=== PATIENT | female | born 1945 | race Caucasian/White ===

== ENCOUNTER 2016-03-22 15:07 | Inpatient (IN) | payer OTHER, MEDICARE ==
--- NOTE | 2016-03-22 15:13 | PDOC ---
History of Present Illness - General History Source: Patient Exam Limitations: No Limitations - History of Present Illness Initial Comments: 03/22/16 16:01 The patient is a 70 year old female, with a significant past medical history of HLD, who presents to the emergency department with cough, shortness of breath and headache. She reports that she was seen at [facility] yesterday for which she was diagnosed with pneumonia and prescribed doxycycline. She states that she has been unable to keep the medication down. She denies loss of appetite and notes that she has been able to keep foods and liquids down. She reports that her headache ranges from mild to moderate, without radiation or modifying factors. The patient was last seen in the ED on 03/19/16 for an allergic reaction to Keflex, which involved mild swelling of her face. The patient denies chest pain and dizziness. Denies fever, chills, nausea, vomit , and constipation. Denies dysuria, frequency, urgency and hematuria. Allergies: Sulfa, keflex, penicillins Past surgical history: None reported Social history: No alcohol, tobacco or drug use reported <Mike Garcia - Last Filed: 03/22/16 16:00> <Riya Davis - Last Filed: 03/25/16 07:56> - General Chief Complaint: Respiratory Stated Complaint: REVISIT FOR PNEUMONIA Time Seen by Provider: 03/22/16 15:13 Past History <Mike Garcia - Last Filed: 03/22/16 16:00> - Immunization History Immunization Up to Date: Yes - Psycho/Social/Smoking Cessation Hx Anxiety: No Suicidal Ideation: No Smoking History: Never smoked Have you smoked in the past 12 months: No Drug/Substance Use Hx: No Substance Use Type: None <Riya Davis - Last Filed: 03/25/16 07:56> - Past Medical History Allergies/Adverse Reactions: Allergies Allergy/AdvReac Type Severity Reaction Status Date / Time cephalexin monohydrate Allergy Verified 03/19/16 08:36 [From Keflex] Penicillins Allergy Verified 03/19/16 08:36 Sulfa (Sulfonamide Allergy Verified 03/19/16 08:36 Antibiotics) Home Medications: Ambulatory Orders Acyclovir [Zovirax -] 400 mg PO DAILY 03/19/16 Epinephrine (Epi-Pen 0.3MG) [Epipen 0.3MG -] 0.3 mg IM ASDIR PRN #2 pens Ezetimibe [Zetia] 10 mg PO DAILY 03/19/16 Fenofibrate 40 mg PO DAILY 03/19/16 Albuterol Sulfate Inhaler - [Ventolin Hfa Inhaler -] 1 - 2 inh PO QID PRN Doxycycline Hyclate [Vibramycin] 100 mg PO BID 03/22/16 Review of Systems - Review of Systems Able to Perform ROS?: Yes Comments:: 03/22/16 16:01 GENERAL/CONSTITUTIONAL: No fever or chills. No weakness. HEAD, EYES, EARS, NOSE AND THROAT: No change in vision. No ear pain or discharge. No sore throat. CARDIOVASCULAR: +Shortness of breath. No chest pain RESPIRATORY: +Cough. No wheezing, or hemoptysis. GASTROINTESTINAL: +Diarrhea. No nausea, vomiting, diarrhea or constipation. GENITOURINARY: No dysuria, frequency, or change in urination. MUSCULOSKELETAL: No joint or muscle swelling or pain. No neck or back pain. SKIN: No rash NEUROLOGIC: No headache, vertigo, loss of consciousness, or change in strength/ sensation. ENDOCRINE: No increased thirst. No abnormal weight change HEMATOLOGIC/LYMPHATIC: No anemia, easy bleeding, or history of blood clots. ALLERGIC/IMMUNOLOGIC: No hives or skin allergy. <Mike Garcia - Last Filed: 03/22/16 16:00> *Physical Exam - Vital Signs Last Vital Signs Temp Pulse Resp BP Pulse Ox 98.5 F 75 19 154/89 96 03/22/16 15:08 03/22/16 15:08 03/22/16 15:08 03/22/16 15:08 03/22/16 15:08 <Mike Garcia - Last Filed: 03/22/16 16:00> Heart Score/ECG Review - ECG Impressions Comment:: EKG read 16:48- NSR 71 bpm, no acute ST/T changes <Riya Davis - Last Filed: 03/25/16 07:56> ED Treatment Course - LABORATORY CBC & Chemistry Diagram: 03/25/16 06:00 03/25/16 06:00 <Riya Davis - Last Filed: 03/25/16 07:56> Medical Decision Making - Medical Decision Making Pt appeared significantly dehydrated. She has had 3 ED visits recently, now diagnosed with pna and unable to tolerate abx PO. Will admit for IV abx and hydration, as she failed outpatient treatment. <Riya Davis - Last Filed: 03/25/16 07:56> *DC/Admit/Observation/Transfer - Attestations Scribe Attestion: 03/22/16 16:01 Documentation prepared by Mike Garcia, acting as medical coding specialist for Riya Davis MD. <Mike Garcia - Last Filed: 03/22/16 16:00> - Discharge Dispostion Admit: Yes <Riya Davis - Last Filed: 03/25/16 07:56> Diagnosis at time of Disposition: Dehydration Pneumonia Qualifiers: Pneumonia type: due to unspecified organism Laterality: unspecified laterality Lung location: unspecified part of lung Qualified Code(s): J18.9 - Pneumonia, unspecified organism - Discharge Dispostion Condition at time of disposition: Stable
[2016-03-22 15:30] VITALS: BMI 21.1
[2016-03-22] MEDS ORDERED: SODIUM CHLORIDE 1,000 ML IV STA (15:54)
[2016-03-22 16:43] LABS: URINE APPEARANCE Cloudy; URINE BILIRUBIN 2+ (NEGATIVE); URINE BLOOD Trace-intact (NEGATIVE); URINE GLUCOSE (UA) Negative (NEGATIVE); URINE KETONE Trace (NEGATIVE); URINE LEUK ESTERASE Negative (NEGATIVE); URINE NITRITE Negative (NEGATIVE); URINE PROTEIN Trace (NEGATIVE); URINE UROBILINOGEN 1.0 E.U/dl (0.2-1.0)
[2016-03-22 16:44] LABS: URINE COLOR YELLOW
[2016-03-22 16:52] LABS: MCH 30.1 pg (25.7-33.7); MEAN CELL VOLUME 91.3 fl (80-96); MEAN PLT VOLUME 7.7 fl (7.5-11.1); PLATELET COUNT 337 K/MM3 (134-434); RDW 13.6 % (11.6-15.6); WHITE BLOOD COUNT 18.2 K/mm3 (4.0-10.0)
[2016-03-22 17:03] LABS: ALBUMIN 3.8 g/dl (3.5-5.0); ALK PHOS 181 U/L (32-92); ANION GAP 10 (8-16); BILIRUBIN,TOTAL 0.8 mg/dl (0.2-1.0); CO2 24 mmol/L (22-28); CREATININE 0.7 mg/dl (0.6-1.3); GLUCOSE,RANDOM 120 mg/dl (74-106); SGOT/AST 54 U/L (10-42); SGPT/ALT 103 U/L (10-40)
[2016-03-22] MEDS ORDERED: LEVOFLOXACIN 750 MG IVPB 150 ML IVPB ONE ×2 (17:06→17:13)
[2016-03-22] MEDS ORDERED: ACETAMINOPHEN 325 MG TABLET (FP) ONE (17:09)
[2016-03-22] MEDS ORDERED: LEVOFLOXACIN 250 MG TABLET (FP) ONE (17:11)
[2016-03-22] MEDS ORDERED: LEVOFLOXACIN 500 MG TABLET (FP) ONE (17:11)
[2016-03-22] MEDS ORDERED: ACETAMINOPHEN 325 MG TABLET (FP) PO PRN (17:14)
[2016-03-22] MEDS ORDERED: IBUPROFEN 600 MG TABLET (FP) PO ONE (20:03)
[2016-03-22] MEDS ORDERED: SODIUM CHLORIDE 1,000 ML IV SCH (20:15)
[2016-03-22] MEDS ORDERED: METOCLOPRAMIDE HCL INJECTION 10 MG/2 ML VIAL IVPB ONE (21:31)
[2016-03-22] MEDS: HEPARIN NA (PORCINE) 5,000 UNITS/ML 1ML VIAL SQ SCH (21:58)
--- NOTE | 2016-03-22 22:00 | HP ---
CHIEF COMPLAINT: Pneumonia PCP: in [place] HISTORY OF PRESENT ILLNESS: This is a 70 year old female with a past medical history of hyperlipidemia and left ocular zoster who presents with persistent cough, headache, nausea and vomiting for several days. She was treated at [facility] yesterday and started on doxycycline for PNA but was unable to keep it down. She was recently seen in an ED in [place] about one week ago for "salivary gland swelling" where she was started on keflex. She then developed itching of the face and periorbital edema. She was seen here in the ED for this and treated with benadryl. She also reported wheezing at that time and was given a prescription for albuterol inhaler. Upon exam, she is complaining of dry mouth and headache in addition to the cough. She denies any chest pain or SOB. ER course was notable for: (1) WBC 18.2 (2) Na 129 (3) Recent Travel: [place], [place] PAST MEDICAL HISTORY: Hyperlipidemia Left eye herpes zoster Social History: Smoking: pt denies Alcohol: pt denies Drugs: pt denies Family History: mother age 90, alzheimers father age 95, old age, had a heart murmur daughter open heart surgery as a young child-pulmonary valve and PFO repair 1 sister with no medical problems Allergies cephalexin monohydrate [From Keflex] Allergy (Verified 03/19/16 08:36) Penicillins Allergy (Verified 03/19/16 08:36) Sulfa (Sulfonamide Antibiotics) Allergy (Verified 03/19/16 08:36) HOME MEDICATIONS: 3 Medication Instructions Recorded Acyclovir [Zovirax -] 400 mg PO DAILY 03/19/16 Epinephrine (Epi-Pen 0.3MG) 0.3 mg IM ASDIR PRN #2 pens 03/19/16 [Epipen 0.3MG -] Ezetimibe [Zetia] 10 mg PO DAILY 03/19/16 Fenofibrate 40 mg PO DAILY 03/19/16 Albuterol Sulfate Inhaler - 1 - 2 inh PO QID PRN 03/22/16 [Ventolin Hfa Inhaler -] Doxycycline Hyclate [Vibramycin] 100 mg PO BID 03/22/16 REVIEW OF SYSTEMS CONSTITUTIONAL: Absent: fever, chills, diaphoresis, generalized weakness, malaise, loss of appetite, weight change HEENT: Present: Swollen glands Absent: rhinorrhea, nasal congestion, throat pain, throat swelling, difficulty swallowing, mouth swelling, ear pain, eye pain, visual changes CARDIOVASCULAR: Absent: chest pain, syncope, palpitations, irregular heart rate, lightheadedness , peripheral edema RESPIRATORY: Present: cough Absent: shortness of breath, dyspnea with exertion, orthopnea, wheezing, stridor , hemoptysis GASTROINTESTINAL: Absent: abdominal pain, abdominal distension, nausea, vomiting, diarrhea, constipation, melena, hematochezia GENITOURINARY: Absent: dysuria, frequency, urgency, hesitancy, hematuria, flank pain, genital pain MUSCULOSKELETAL: Absent: myalgia, arthralgia, joint swelling, back pain, neck pain SKIN: Absent: rash, itching, pallor HEMATOLOGIC/IMMUNOLOGIC: Absent: easy bleeding, easy bruising, lymphadenopathy, frequent infections ENDOCRINE: Absent: unexplained weight gain, unexplained weight loss, heat intolerance, cold intolerance NEUROLOGIC: Present: headache Absent: focal weakness or paresthesias, dizziness, unsteady gait, seizure, mental status changes, bladder or bowel incontinence PSYCHIATRIC: Absent: anxiety, depression, suicidal or homicidal ideation, hallucinations. PHYSICAL EXAMINATION Vital Signs - 24 hr 3 03/22/16 03/22/16 15:08 21:00 Temperature 98.5 F Pulse Rate 75 Respiratory 19 19 Rate Blood Pressure 154/89 O2 Sat by Pulse 96 Oximetry (%) GENERAL: Awake, alert, and fully oriented, in no acute distress. HEAD: Normal with no signs of trauma. EYES: Pupils equal, round and reactive to light, extraocular movements intact, sclera anicteric, conjunctiva clear. No lid lag. EARS, NOSE, THROAT: Ears normal, nares patent, oropharynx clear without exudates. Moist mucous membranes. NECK: Normal range of motion, supple, JVD, or masses. + swelling to bilat submandibular salivary glands, no other lymphadenopathy LUNGS: Breath sounds equal, clear to auscultation bilaterally. No wheezes. No accessory muscle use. + crackles right base, clear with cough HEART: Regular rate and rhythm, normal S1 and S2 without murmur, rub or gallop. ABDOMEN: Soft, nontender, not distended, normoactive bowel sounds, no guarding, no rebound, no masses. No hepatomegaly or splenomegaly. MUSCULOSKELETAL: Normal range of motion at all joints. No bony deformities or tenderness. No CVA tenderness. UPPER EXTREMITIES: 2+ pulses, warm, well-perfused. No cyanosis. No clubbing. Cap refill <2 seconds. No peripheral edema. LOWER EXTREMITIES: 2+ pulses, warm, well-perfused. No calf tenderness. No peripheral edema. NEUROLOGICAL: Cranial nerves II-XII intact. Normal speech. Normal gait. PSYCHIATRIC: Cooperative. Good eye contact. Appropriate mood and affect. SKIN: Warm, dry, normal turgor, no rashes or lesions noted. Laboratory Results - last 24 hr 3 03/22/16 03/22/16 03/22/16 16:20 16:30 16:30 WBC 18.2 H D RBC 4.24 Hgb 12.8 Hct 38.7 MCV 91.3 MCHC 33.0 RDW 13.6 Plt Count 337 MPV 7.7 Neutrophils % 76.0 D Lymphocytes % 4.0 L D Monocytes % 4.0 Eosinophils % 13.0 H Band Neutrophils 3.0 D Sodium 129 L Potassium 3.8 Chloride 95 L Carbon Dioxide 24 Anion Gap 10 BUN 9 D Creatinine 0.7 Creat Clearance w eGFR > 60 Random Glucose 120 H D Calcium 10.0 Total Bilirubin 0.8 D AST 54 H D ALT 103 H D Alkaline Phosphatase 181 H D Total Protein 7.0 Albumin 3.8 Urine Color Yellow Urine Appearance Cloudy Urine pH 6.0 Ur Specific Remlap 1.025 Urine Protein Trace Urine Glucose (UA) Negative Urine Ketones Trace Urine Blood Trace-intact Urine Nitrite Negative Urine Bilirubin 2+ H Urine Urobilinogen 1.0 e.u/dl Ur Leukocyte Esterase Negative ECG: NSR, rate 71, QTC 465, CXR: ? infiltrate RLL, final read pending ASSESSMENT/PLAN: 70 year old female with a past medical history of hyperlipidemia and left ocular zoster who presents with persistent cough, headache, nausea and vomiting for several days. She was also found to be hyponatremic. She is being admitted for pneumonia and hyponatremia. Pneumonia - levaquin 750mg QD - incentive spirometer q1h while awake - robitussion q4h PRN hyponatremia - NS @75cc/hr - repeat BMP 11pm headache - given motrin with little relief - will add migraine cocktail of reglan 10mg IVPB, benadryl 25mg IVP - cont IVF. hyperlipidemia - cont home meds DVT PPX - heparin 5000u BID FEN - NS @75cc/hr - repeat bmp 11pm, 6am - regular diet Dispo: Pt currently requires inpatient care. Visit type - Emergency Visit Emergency Visit: Yes ED Registration Date: 03/22/16 Care time: The patient presented to the Emergency Department on the above date and was hospitalized for further evaluation of their emergent condition. - New Patient This patient is new to me today: Yes Date on this admission: 03/22/16 - Critical Care Critical Care patient: No
[2016-03-22 23:32] LABS: CALCIUM 8.9 mg/dl (8.4-10.2); CREATININE 0.5 mg/dl (0.6-1.3)
[2016-03-23] MEDS: SODIUM CHLORIDE 1,000 ML IV SCH (00:33)
[2016-03-23] MEDS: guaiFENesin 200 MG/10 ML 10 ML UNIT-DOSE CUPS PO PRN ×2 (00:35→06:16)
[2016-03-23 08:57] LABS: MCH 30.1 pg (25.7-33.7); MCHC 32.7 g/dl (32.0-36.0); MEAN CELL VOLUME 92.3 fl (80-96); PLATELET COUNT 306 K/MM3 (134-434); RDW 13.6 % (11.6-15.6); WHITE BLOOD COUNT 15.8 K/mm3 (4.0-10.0)
[2016-03-23 09:04] LABS: CALCIUM 9.4 mg/dl (8.4-10.2); CREATININE 0.6 mg/dl (0.6-1.3); MAGNESIUM 1.6 mg/dL (1.8-2.4); PHOSPHOROUS 2.7 mg/dl (2.5-4.6)
[2016-03-23] MEDS: FENOFIBRIC ACID 45 MG CAP PO SCH (10:00)
[2016-03-23] MEDS ORDERED: PT OWN MED DRAWER 7, Y5N ONE (10:28)
[2016-03-23] MEDS: ACYCLOVIR 400 MG TABLET PO SCH (10:33)
[2016-03-23] MEDS: HEPARIN NA (PORCINE) 5,000 UNITS/ML 1ML VIAL SQ SCH ×2 (10:34→21:29)
[2016-03-23] MEDS: LEVOFLOXACIN 750 MG IVPB 150 ML IVPB SCH (10:34)
[2016-03-23] MEDS: EZETIMIBE 10 MG TABLET (FP) PO SCH (10:34)
--- NOTE | 2016-03-23 11:32 | PN ---
Physical Exam: SUBJECTIVE: Patient seen and examined, denies any CP/SOB, denies any fever, chills, reports nausea is better, reports migraine improves, overall is feeling much better since admission. OBJECTIVE:70 year old female with a past medical history of hyperlipidemia and left ocular zoster presented to the ED with c/o persistent cough, headache, nausea and vomiting for several days. She was was found to have leukocytosis and hyponatremia. she was thus admitted for further eval and treatment. Vital Signs Period Temp Pulse Resp BP Sys/Shannon Pulse Ox Last 24 Hr 97.9 F-99.7 F 60-67 17-19 117-132/69-75 GENERAL: The patient is awake, alert, and fully oriented, in no acute distress. HEAD: Normal with no signs of trauma. EYES: PERRL, extraocular movements intact, sclera anicteric, conjunctiva clear. No ptosis. ENT: Ears normal, nares patent, oropharynx clear without exudates, Dry mucous membranes. NECK: Trachea midline, full range of motion, supple. LUNGS: Breath sounds diminshed, some rhonchi to the right lobes, no accessory muscle use. HEART: Regular rate and rhythm, S1, S2 without murmur, rub or gallop. ABDOMEN: Soft, nontender, nondistended, normoactive bowel sounds, no guarding, no rebound, no hepatosplenomegaly, no masses. EXTREMITIES: 2+ pulses, warm, well-perfused, no edema. NEUROLOGICAL: Normal speech, gait not observed. PSYCH: Normal mood, normal affect. SKIN: Warm, dry, normal turgor, no rashes or lesions noted Laboratory Results - last 24 hr 03/22/16 03/23/16 03/23/16 23:00 06:50 07:30 WBC 15.8 H RBC 4.00 Hgb 12.1 Hct 36.9 MCV 92.3 MCHC 32.7 RDW 13.6 Plt Count 306 MPV 8.0 Neutrophils % Y Lymphocytes % Y Sodium 125 L Potassium 4.1 Chloride 98 Carbon Dioxide 21 L Anion Gap 6 L BUN 8 Creatinine 0.5 L D Random Glucose 145 H D Calcium 8.9 Phosphorus Magnesium Urine Osmolality Cancelled Ur Random Sodium Ur Random Potassium Ur Random Chloride 03/23/16 03/23/16 07:30 08:10 WBC RBC Hgb Hct MCV MCHC RDW Plt Count MPV Neutrophils % Lymphocytes % Sodium 135 L Potassium 4.1 Chloride 102 Carbon Dioxide 26 D Anion Gap 7 L BUN 6 L D Creatinine 0.6 Random Glucose 88 D Calcium 9.4 Phosphorus 2.7 Magnesium 1.6 L Urine Osmolality Ur Random Sodium 29 Ur Random Potassium 6.2 Ur Random Chloride 36 Active Medications Generic Name Dose Route Start Last Admin Trade Name Freq PRN Reason Stop Dose Admin Acyclovir 400 mg 03/23/16 10:00 03/23/16 10:33 Zovirax - PO 400 mg DAILY FRANSISCA Administration Ezetimibe 10 mg 03/23/16 10:00 03/23/16 10:34 Zetia - PO 10 mg DAILY FRANSISCA Administration Fenofibric Acid 45 mg 03/23/16 10:00 Trilipix - PO DAILY FRANSISCA Guaifenesin 10 ml 03/22/16 22:00 03/23/16 06:16 Robitussin - PO 10 ml Q4H PRN Administration COUGH Heparin Sodium (Porcine) 5,000 unit 03/22/16 22:00 03/23/16 10:34 Heparin - SQ 5,000 unit BID FRANSISCA Administration Sodium Chloride 1,000 mls @ 125 mls/hr 03/23/16 00:25 03/23/16 00:33 Normal Saline - IV 125 mls/hr ASDIR FRANSISCA Administration Levofloxacin 150 mls @ 100 mls/hr 03/23/16 10:00 03/23/16 10:34 Levaquin 750 Mg Premixed Ivpb - IVPB 100 mls/hr DAILY FRANSISCA Administration Ondansetron HCl 4 mg 03/22/16 20:05 Zofran Injection IVPB Q6H PRN NAUSEA ASSESSMENT/PLAN: 1) Cough/leukocytosis R/o pneumonia vs bronchitis: CXR show: small bilateral effusions, no signs of infiltrate or failure leukocytosis improved, 15.8 from 18.2 influenza A&B negative Empiric ABT pending culture results Hydrate monitor closely prn antipyretic 2) hyponatremia: improving, sodium level 135 from 125 trending sodium level repeat labs in AM 3)Hyperlipidemia: Cont zetia/ fenobrinic acid, low cholesterol/low fat diet 4) Hx ocular zoster: cont' oral acyclovir, no reported visual disturbances 5) headache: had received reglan and IV benadryl with some relief will give one more dose today and start on fioricet prn, cont IV hydration Visit type - Emergency Visit Emergency Visit: Yes ED Registration Date: 03/22/16 Care time: The patient presented to the Emergency Department on the above date and was hospitalized for further evaluation of their emergent condition. - New Patient This patient is new to me today: Yes Date on this admission: 03/23/16 - Critical Care Critical Care patient: No - Discharge Referral Referred to [facility] Med P.C.: Yes
[2016-03-23] MEDS: IBUPROFEN 400 MG TABLET (FP) PO PRN (12:10)
[2016-03-23] MEDS ORDERED: METOCLOPRAMIDE HCL INJECTION 10 MG/2 ML VIAL IVPUSH ONE (12:12)
[2016-03-23] MEDS: ACETAMINOPHEN/CAFFEINE/BUTALBITAL 1 TAB PO PRN (18:49)
[2016-03-23] MEDS ORDERED: MAGNESIUM SULF 50% (8.12 MEQ/2 ML-1 GM VIAL) IVPB ONE (22:23)
[2016-03-23] MEDS: diphenhydrAMINE HCL 25 MG CAPSULE (FP) PO PRN (22:51)
[2016-03-24] MEDS: diphenhydrAMINE HCL 25 MG CAPSULE (FP) PO PRN (04:32)
[2016-03-24] MEDS: IBUPROFEN 400 MG TABLET (FP) PO PRN ×2 (04:32→18:30)
[2016-03-24] MEDS: SODIUM CHLORIDE 1,000 ML IV SCH (06:53)
[2016-03-24 07:46] LABS: MCH 30.7 pg (25.7-33.7); MCHC 32.9 g/dl (32.0-36.0); MEAN CELL VOLUME 93.1 fl (80-96); PLATELET COUNT 261 K/MM3 (134-434); RDW 14.1 % (11.6-15.6); WHITE BLOOD COUNT 13.9 K/mm3 (4.0-10.0)
[2016-03-24 07:47] LABS: BASOPHIL 0.5 % (0-2.0); EOSINOPHIL 51.4 % (0-4.5); MEAN PLT VOLUME 7.6 fl (7.5-11.1); NEUTROPHILS 33.4 % (42.8-82.8)
[2016-03-24 08:25] LABS: CALCIUM 8.6 mg/dL (8.5-10.1); CREATININE 0.6 mg/dL (0.55-1.02)
[2016-03-24] MEDS: HEPARIN NA (PORCINE) 5,000 UNITS/ML 1ML VIAL SQ SCH ×2 (09:56→21:30)
[2016-03-24] MEDS: LEVOFLOXACIN 750 MG IVPB 150 ML IVPB SCH (09:56)
[2016-03-24] MEDS: EZETIMIBE 10 MG TABLET (FP) PO SCH (09:57)
[2016-03-24] MEDS: FENOFIBRIC ACID 45 MG CAP PO SCH (09:57)
[2016-03-24] MEDS: ACYCLOVIR 400 MG TABLET PO SCH (09:57)
[2016-03-24] MEDS: ACETAMINOPHEN/CAFFEINE/BUTALBITAL 1 TAB PO PRN (09:58)
[2016-03-24] MEDS: predniSONE 20 MG TABLET (UD) PO SCH (11:36)
[2016-03-24] MEDS: FLUTICASONE PROP 0.05% 16 GM NASAL SPRAY NS SCH ×2 (11:42→22:30)
--- NOTE | 2016-03-24 12:08 | PN ---
Physical Exam: SUBJECTIVE: Patient seen and examined, seen and examined, reports feeling better each day, does report some nasal dryness, headache improved. OBJECTIVE: 70 year old female with a past medical history of hyperlipidemia and left ocular zoster presented to the ED with c/o persistent cough, headache, nausea and vomiting for several days. She was was found to have leukocytosis and hyponatremia. she was thus admitted for further eval and treatment. Last Vital Signs Temp Pulse Resp BP Pulse Ox 99.5 F 79 18 143/66 100 03/24/16 06:00 03/24/16 06:00 03/24/16 09:00 03/24/16 06:00 03/24/16 09:00 GENERAL: The patient is awake, alert, and fully oriented, in no acute distress. HEAD: Normal with no signs of trauma. EYES: PERRL, extraocular movements intact, sclera anicteric, conjunctiva clear. No ptosis. ENT: Ears normal, nares patent, oropharynx clear without exudates, moist mucous membranes. NECK: Trachea midline, full range of motion, supple. LUNGS: Breath sounds equal, clear to auscultation bilaterally, no wheezes, no crackles, no accessory muscle use. HEART: Regular rate and rhythm, S1, S2 without murmur, rub or gallop. ABDOMEN: Soft, nontender, nondistended, normoactive bowel sounds, no guarding, no rebound, no hepatosplenomegaly, no masses. EXTREMITIES: 2+ pulses, warm, well-perfused, no edema. NEUROLOGICAL: . Normal speech, gait steady PSYCH: Normal mood, normal affect. SKIN: Warm, dry, normal turgor, no rashes or lesions noted Laboratory Results - last 24 hr 03/23/16 03/24/16 03/24/16 08:10 07:00 07:00 WBC 13.9 H RBC 3.60 Hgb 11.0 Hct 33.5 MCV 93.1 MCHC 32.9 RDW 14.1 Plt Count 261 MPV 7.6 Neutrophils % 33.4 L Lymphocytes % 7.6 L Monocytes % 7.1 Eosinophils % 51.4 H* Basophils % 0.5 Sodium 141 Potassium 4.0 Chloride 109 H Carbon Dioxide 24 Anion Gap 8 BUN 3 L Creatinine 0.6 Random Glucose 87 Calcium 8.6 Urine Osmolality 111 L Active Medications Generic Name Dose Route Start Last Admin Trade Name Freq PRN Reason Stop Dose Admin Acetaminophen/Butalbital/Caffeine 1 tablet 03/23/16 16:25 03/24/16 09:58 Fioricet - PO 03/26/16 16:24 1 tablet Q6H PRN Administration HEADACHE Acyclovir 400 mg 03/23/16 10:00 03/24/16 09:57 Zovirax - PO 400 mg DAILY FRANSISCA Administration Diphenhydramine HCl 25 mg 03/23/16 16:29 03/24/16 04:32 Benadryl - PO 25 mg HS PRN Administration INSOMNIA Ezetimibe 10 mg 03/23/16 10:00 03/24/16 09:57 Zetia - PO 10 mg DAILY FRANSISCA Administration Fenofibric Acid 45 mg 03/23/16 10:00 03/24/16 09:57 Trilipix - PO Not Given DAILY FRANSISCA Fluticasone Propionate 1 spray 03/24/16 11:00 03/24/16 11:42 Flonase - NS 1 spray BID FRANSISCA Administration Guaifenesin 10 ml 03/22/16 22:00 03/23/16 06:16 Robitussin - PO 10 ml Q4H PRN Administration COUGH Heparin Sodium (Porcine) 5,000 unit 03/22/16 22:00 03/24/16 09:56 Heparin - SQ 5,000 unit BID FRANSISCA Administration Sodium Chloride 1,000 mls @ 125 mls/hr 03/23/16 00:25 03/24/16 06:53 Normal Saline - IV 125 mls/hr ASDIR FRANSISCA Administration Levofloxacin 150 mls @ 100 mls/hr 03/23/16 10:00 03/24/16 09:56 Levaquin 750 Mg Premixed Ivpb - IVPB 100 mls/hr DAILY FRANSISCA Administration Ibuprofen 400 mg 03/23/16 11:37 03/24/16 04:32 Motrin - PO 400 mg Q6H PRN Administration PAIN Ondansetron HCl 4 mg 03/22/16 20:05 Zofran Injection IVPB Q6H PRN NAUSEA Prednisone 40 mg 03/24/16 11:00 03/24/16 11:36 Deltasone - PO 03/28/16 10:01 40 mg DAILY FRANSISCA Administration Microbiology 03/22/16 16:20 Urine - Urine Clean Catch Urine Culture - Final NO GROWTH OBTAINED 03/22/16 16:20 Blood - Peripheral Venous Blood Culture - Preliminary NO GROWTH OBTAINED AFTER 24 HOURS, INCUBATION TO CONTINUE FOR 4 DAYS. 03/22/16 16:30 Blood - Peripheral Venous Blood Culture - Preliminary NO GROWTH OBTAINED AFTER 24 HOURS, INCUBATION TO CONTINUE FOR 4 DAYS. 03/22/16 16:20 Urine For Antigen Detection Legionella Antigen - Final 03/22/16 16:20 Urine For Antigen Detection Streptococcus pneumoniae Antigen (M - Final ASSESSMENT/PLAN: 1) Cough/leukocytosis R/o pneumonia vs bronchitis: cough improved, CXR show: small bilateral effusions , no signs of infiltrate or failure leukocytosis improved, 13.9 from 18.2 influenza A&B negative Empiric ABT preliminary culture result negative Hydrate monitor closely prn antipyretic 2) eosinophilia: eosinophils level elevated from 13.0 to 51.4, patient does report a recent allergic reaction to cephalexin about a week ago, resulting in facial swelling. Will start on oral prednisone dose taper, close monitoring. 3) hyponatremia: resolved, sodium level today 141 AM labs. 4)Hyperlipidemia: Cont zetia/ fenobrinic acid, low cholesterol/low fat diet 5) Hx ocular zoster: cont' oral acyclovir, no reported visual disturbances 6) headache: improved on fioricet. Visit type - Emergency Visit Emergency Visit: Yes ED Registration Date: 03/22/16 Care time: The patient presented to the Emergency Department on the above date and was hospitalized for further evaluation of their emergent condition. - New Patient This patient is new to me today: No - Critical Care Critical Care patient: No - Discharge Referral Referred to [facility] Med P.C.: Yes
--- NOTE | 2016-03-24 18:00 | EKG ---
Test Reason : Blood Pressure : / mmHG Vent. Rate : 071 BPM Atrial Rate : 071 BPM P-R Int : 186 ms QRS Dur : 072 ms QT Int : 428 ms P-R-T Axes : 084 066 058 degrees QTc Int : 465 ms POOR DATA QUALITY, INTERPRETATION MAY BE ADVERSELY AFFECTED NORMAL SINUS RHYTHM ANTERIOR INFARCT , AGE UNDETERMINED NO PREVIOUS ECGS AVAILABLE Confirmed by MD GONZALEZ MARJORY ([id number]) on 03/24/2016 5:59:52 PM Referred By: MD ROSS Overread By: MIKE GONZALEZ MD
[2016-03-24] MEDS: guaiFENesin 200 MG/10 ML 10 ML UNIT-DOSE CUPS PO PRN (22:47)
[2016-03-25] MEDS: SODIUM CHLORIDE 1,000 ML IV SCH (01:07)
[2016-03-25] MEDS: guaiFENesin 200 MG/10 ML 10 ML UNIT-DOSE CUPS PO PRN (06:45)
[2016-03-25 07:06] LABS: MCH 31.1 pg (25.7-33.7); MCHC 33.1 g/dl (32.0-36.0); MEAN CELL VOLUME 93.9 fl (80-96); MEAN PLT VOLUME 7.8 fl (7.5-11.1); PLATELET COUNT 245 K/MM3 (134-434); RDW 14.2 % (11.6-15.6); WHITE BLOOD COUNT 13.7 K/mm3 (4.0-10.0)
[2016-03-25 07:34] LABS: ALBUMIN 2.6 g/dl (3.4-5.0); ALK PHOS 317 U/L (45-117); ANION GAP 9 (8-16); BILIRUBIN,DIRECT 0.2 mg/dL (0.0-0.2); BILIRUBIN,TOTAL 0.4 mg/dL (0.2-1.0); CALCIUM 8.8 mg/dL (8.5-10.1); CO2 24 mmol/L (21-32); CREATININE 0.6 mg/dL (0.55-1.02); GLUCOSE,RANDOM 105 mg/dL (74-106); SGOT/AST 217 U/L (15-37); SGPT/ALT 181 U/L (12-78); TOT PROT 5.6 g/dl (6.4-8.2)
--- NOTE | 2016-03-25 08:50 | PN ---
[id number] reports headache to left side of head with photosensitivity, patient denies any fever or nausea. OBJECTIVE:70 year old female with a past medical history of hyperlipidemia and left ocular zoster. patient was admitted from the emergency department for bilateral pleural effusions and hyponatremia. Vital Signs Period Temp Pulse Resp BP Sys/Shannon Pulse Ox Last 24 Hr 97.3 F-97.9 F 52-72 16-18 115-133/54-74 96-100 GENERAL: The patient is awake, alert, and fully oriented, in no acute distress. HEAD: Normal with no signs of trauma. EYES: PERRL, extraocular movements intact, sclera anicteric, conjunctiva clear. No ptosis. ENT: Ears normal, nares patent, oropharynx clear without exudates, moist mucous membranes. NECK: Trachea midline, full range of motion, supple. LUNGS: Breath sounds equal, diminished to base, crackles to billateral bases R<L , no wheezes, no accessory muscle use, ongoing moist cough HEART: Regular rate and rhythm, S1, S2 without murmur, rub or gallop. ABDOMEN: Soft, nontender, nondistended, normoactive bowel sounds, no guarding, no rebound, no hepatosplenomegaly, no masses. EXTREMITIES: 2+ pulses, warm, well-perfused, no edema. NEUROLOGICAL: Cranial nerves II through XII grossly intact. Normal speech, gait not observed. PSYCH: Normal mood, normal affect. SKIN: Warm, dry, normal turgor, no rashes or lesions noted Laboratory Results - last 24 hr 03/25/16 03/25/16 06:00 06:00 WBC 13.7 H RBC 3.32 L Hgb 10.3 L Hct 31.1 L MCV 93.9 MCHC 33.1 RDW 14.2 Plt Count 245 MPV 7.8 Neutrophils % Y Lymphocytes % Y Sodium 141 Potassium 4.1 Chloride 108 H Carbon Dioxide 24 Anion Gap 9 BUN 6 L D Creatinine 0.6 Random Glucose 105 D Calcium 8.8 Total Bilirubin 0.4 Direct Bilirubin 0.2 AST 217 H ALT 181 H Alkaline Phosphatase 317 H Total Protein 5.6 L Albumin 2.6 L Active Medications Generic Name Dose Route Start Last Admin Trade Name Freq PRN Reason Stop Dose Admin Acetaminophen/Butalbital/Caffeine 1 tablet 03/23/16 16:25 03/24/16 09:58 Fioricet - PO 03/26/16 16:24 1 tablet Q6H PRN Administration HEADACHE Acyclovir 400 mg 03/23/16 10:00 03/24/16 09:57 Zovirax - PO 400 mg DAILY FRANSISCA Administration Diphenhydramine HCl 25 mg 03/23/16 16:29 03/24/16 04:32 Benadryl - PO 25 mg HS PRN Administration INSOMNIA Ezetimibe 10 mg 03/23/16 10:00 03/24/16 09:57 Zetia - PO 10 mg DAILY FRANSISCA Administration Fenofibric Acid 45 mg 03/23/16 10:00 03/24/16 09:57 Trilipix - PO Not Given DAILY FRANSISCA Fluticasone Propionate 1 spray 03/24/16 11:00 03/24/16 22:30 Flonase - NS 1 spray BID FRANSISCA Administration Guaifenesin 10 ml 03/22/16 22:00 03/25/16 06:45 Robitussin - PO 10 ml Q4H PRN Administration COUGH Heparin Sodium (Porcine) 5,000 unit 03/22/16 22:00 03/24/16 21:30 Heparin - SQ 5,000 unit BID FRANSISCA Administration Sodium Chloride 1,000 mls @ 125 mls/hr 03/23/16 00:25 03/25/16 01:07 Normal Saline - IV 125 mls/hr ASDIR FRANSISCA Administration Levofloxacin 150 mls @ 100 mls/hr 03/23/16 10:00 03/24/16 09:56 Levaquin 750 Mg Premixed Ivpb - IVPB 100 mls/hr DAILY FRANSISCA Administration Ibuprofen 400 mg 03/23/16 11:37 03/24/16 18:30 Motrin - PO 400 mg Q6H PRN Administration PAIN Ondansetron HCl 4 mg 03/22/16 20:05 Zofran Injection IVPB Q6H PRN NAUSEA Prednisone 40 mg 03/24/16 11:00 03/24/16 11:36 Deltasone - PO 03/28/16 10:01 40 mg DAILY FRANSISCA Administration Microbiology 03/22/16 16:20 Blood - Peripheral Venous Blood Culture - Preliminary NO GROWTH OBTAINED AFTER 48 HOURS, INCUBATION TO CONTINUE FOR 3 DAYS. 03/22/16 16:30 Blood - Peripheral Venous Blood Culture - Preliminary NO GROWTH OBTAINED AFTER 48 HOURS, INCUBATION TO CONTINUE FOR 3 DAYS. 12/30/16 16:20 Urine - Urine Clean Catch Urine Culture - Final NO GROWTH OBTAINED 03/22/16 16:20 Urine For Antigen Detection Legionella Antigen - Final, negative 03/22/16 16:20 Urine For Antigen Detection Streptococcus pneumoniae Antigen (M - Final, negative 03/22/16 16:05 Nasopharyngeal Swab Influenza Types A,B Antigen (MICHAEL) - Final , negative ASSESSMENT/PLAN: 1) Pulm - chest xray (03/22), small billateral pleural effusions - pt reports ongoing cough, persistant moist cough noted on exam, will order CT of chest w/o contrast - continue levaquin - pending RSV and sputum culture - combivent q6h standing ordered 2) Heme - leukocytosis resolved, pt afebrile - eosinophilia noted, secondary to allergic reaction, continue oral prednisone 3) GI - transaminitis noted, benign abdominal exam, tbilli wnl, likely secondary to infection - hold zetia and fenobriate 4) Card - pmh of hyperlipidemia, will hold fenobriate and zetia due to transanimitis - continue low cholestrol diet 5) neuro - new onset headache, symptoms consistent migraines - magnesium, toradol, reglan ordered - pending CT of head - continue prn fiorcet f/e/n -low cholesterol diet - ivf ppx zantac dispo: requires inpatient care Visit type - Emergency Visit Emergency Visit: Yes ED Registration Date: 03/22/16 Care time: The patient presented to the Emergency Department on the above date and was hospitalized for further evaluation of their emergent condition. - New Patient This patient is new to me today: Yes Date on this admission: 03/25/16 - Critical Care Critical Care patient: No - Discharge Referral Referred to [facility] Med P.C.: No
[2016-03-25 08:56] LABS: MAGNESIUM 1.8 mg/dL (1.8-2.4)
[2016-03-25] MEDS ORDERED: ALBUTEROL SO4 2.5/IPRATROPIUM 0.5 INH SOL 3 ML VIAL.NEB. NEB SCH (09:00)
[2016-03-25] MEDS ORDERED: KETOROLAC TROMETHAMINE 30 MG/1 ML VIAL IVPUSH ONE (09:45)
[2016-03-25] MEDS ORDERED: MAGNESIUM SULF 50% (8.12 MEQ/2 ML-1 GM VIAL) IVPB ONE (09:45)
[2016-03-25] MEDS ORDERED: METOCLOPRAMIDE HCL INJECTION 10 MG/2 ML VIAL IVPB ONE (09:45)
[2016-03-25] MEDS ORDERED: PT OWN MED DRAWER 7, Y5N ONE ×2 (09:53→21:22)
[2016-03-25 10:08] LABS: PLATELET ESTIMATE ADEQUATE (NORMAL)
[2016-03-25] MEDS: LEVOFLOXACIN 750 MG IVPB 150 ML IVPB SCH (10:15)
[2016-03-25] MEDS: FLUTICASONE PROP 0.05% 16 GM NASAL SPRAY NS SCH ×2 (10:15→21:36)
[2016-03-25] MEDS: predniSONE 20 MG TABLET (UD) PO SCH (10:15)
[2016-03-25] MEDS: RANITIDINE HCL 150 MG TABLET (FP) PO SCH (10:15)
[2016-03-25] MEDS: HEPARIN NA (PORCINE) 5,000 UNITS/ML 1ML VIAL SQ SCH ×2 (10:15→21:36)
[2016-03-25] MEDS: ACYCLOVIR 400 MG TABLET PO SCH (10:15)
[2016-03-25] MEDS ORDERED: SODIUM CHLORIDE 1,000 ML IV SCH ×3 (14:07→14:44)
[2016-03-25] MEDS: BUDESONIDE/FORMETEROL FUMARATE 80/4.5 mcg INHALER IH SCH (21:36)
[2016-03-25] MEDS: ALBUTEROL SO4 2.5/IPRATROPIUM 0.5 INH SOL 3 ML VIAL.NEB. NEB PRN (23:25)
[2016-03-25] MEDS: IBUPROFEN 400 MG TABLET (FP) PO PRN (23:45)
[2016-03-25] MEDS: diphenhydrAMINE HCL 25 MG CAPSULE (FP) PO PRN (23:45)
[2016-03-26] MEDS: ALBUTEROL SO4 2.5/IPRATROPIUM 0.5 INH SOL 3 ML VIAL.NEB. NEB PRN (05:30)
[2016-03-26] MEDS: IBUPROFEN 400 MG TABLET (FP) PO PRN (05:30)
[2016-03-26 08:18] LABS: BASOPHIL 0.2 % (0-2.0); EOSINOPHIL 28.9 % (0-4.5); MCH 30.8 pg (25.7-33.7); MCHC 33.5 g/dl (32.0-36.0); MEAN CELL VOLUME 92.1 fl (80-96); MEAN PLT VOLUME 7.6 fl (7.5-11.1); NEUTROPHILS 49.9 % (42.8-82.8); PLATELET COUNT 314 K/MM3 (134-434); RDW 13.6 % (11.6-15.6); WHITE BLOOD COUNT 15.8 K/mm3 (4.0-10.0)
[2016-03-26 08:40] LABS: ALBUMIN 2.8 g/dl (3.5-5.0); ALK PHOS 253 U/L (32-92); ANION GAP 5 (8-16); BILIRUBIN,TOTAL 0.6 mg/dl (0.2-1.0); CALCIUM 9.1 mg/dl (8.4-10.2); CO2 25 mmol/L (22-28); CREATININE 0.6 mg/dl (0.6-1.3); GLUCOSE,RANDOM 96 mg/dl (74-106); MAGNESIUM 1.6 mg/dL (1.8-2.4); PHOSPHOROUS 3.1 mg/dl (2.5-4.6); SGOT/AST 127 U/L (10-42); SGPT/ALT 154 U/L (10-40); TOT PROT 5.5 g/dl (6.4-8.3)
[2016-03-26] MEDS ORDERED: MAGNESIUM SULFATE 2 GM in SODIUM CHLORIDE 100 ML IVPB ONE (08:54)
--- NOTE | 2016-03-26 08:54 | PN ---
[id number] cough. OBJECTIVE: patient is a 70 year old female with a past medical history of hyperlipidemia and left ocular zoster. patient was admitted from the emergency department for bilateral pleural effusions and hyponatremia. Vital Signs Period Temp Pulse Resp BP Sys/Shannon Pulse Ox Last 24 Hr 98.3 F-99 F 58-84 17-18 114-136/55-65 94-96 physical examination GENERAL: The patient is awake, alert, and fully oriented, in no acute distress. HEAD: Normal with no signs of trauma. EYES: PERRL, extraocular movements intact, sclera anicteric, conjunctiva clear. No ptosis. ENT: Ears normal, nares patent, oropharynx clear without exudates, moist mucous membranes. NECK: Trachea midline, full range of motion, supple. LUNGS: Breath sounds equal, diminished to base, crackles to billateral bases R<L , no wheezes, no accessory muscle use, ongoing moist cough HEART: Regular rate and rhythm, S1, S2 without murmur, rub or gallop. ABDOMEN: Soft, nontender, nondistended, normoactive bowel sounds, no guarding, no rebound, no hepatosplenomegaly, no masses. EXTREMITIES: 2+ pulses, warm, well-perfused, no edema. NEUROLOGICAL: Cranial nerves II through XII grossly intact. Normal speech, gait not observed. PSYCH: Normal mood, normal affect. SKIN: Warm, dry, normal turgor, no rashes or lesions noted Laboratory Results - last 24 hr 03/25/16 03/25/16 03/25/16 06:00 06:00 09:00 WBC RBC Hgb Hct MCV MCHC RDW Plt Count MPV Neutrophils % 44.0 D Lymphocytes % 21.0 D Monocytes % 8.0 Eosinophils % 21.0 H* Basophils % Band Neutrophils 6.0 Platelet Estimate Adequate Sodium Potassium Chloride Carbon Dioxide Anion Gap BUN Creatinine Creat Clearance w eGFR Random Glucose Calcium Phosphorus 3.0 Magnesium 1.8 Total Bilirubin AST ALT Alkaline Phosphatase B-Natriuretic Peptide < 5.00 L Total Protein Albumin Monoscreen Negative RSV Ag Report Status 03/25/16 03/26/16 03/26/16 13:00 07:40 07:40 WBC 15.8 H RBC 3.30 L Hgb 10.2 L D Hct 30.4 L D MCV 92.1 MCHC 33.5 RDW 13.6 Plt Count 314 MPV 7.6 Neutrophils % 49.9 D Lymphocytes % 13.4 D Monocytes % 7.6 D Eosinophils % 28.9 H* D Basophils % 0.2 Band Neutrophils Platelet Estimate Sodium 137 Potassium 3.9 Chloride 107 Carbon Dioxide 25 Anion Gap 5 L BUN 9 D Creatinine 0.6 Creat Clearance w eGFR > 60 Random Glucose 96 Calcium 9.1 Phosphorus 3.1 Magnesium 1.6 L Total Bilirubin 0.6 D AST 127 H D ALT 154 H D Alkaline Phosphatase 253 H D B-Natriuretic Peptide Total Protein 5.5 L D Albumin 2.8 L D Monoscreen RSV Ag Report Status Negative Active Medications Generic Name Dose Route Start Last Admin Trade Name Freq PRN Reason Stop Dose Admin Acetaminophen/Butalbital/Caffeine 1 tablet 03/23/16 16:25 03/24/16 09:58 Fioricet - PO 03/26/16 16:24 1 tablet Q6H PRN Administration HEADACHE Acyclovir 400 mg 03/23/16 10:00 03/25/16 10:15 Zovirax - PO 400 mg DAILY FRANSISCA Administration Albuterol/Ipratropium 1 amp 03/25/16 15:04 03/26/16 05:30 Duoneb - NEB 1 amp Q6H PRN Administration COUGH Budesonide/Formoterol Fumarate 2 puff 03/25/16 22:00 03/25/16 21:36 Symbicort 80/4.5mcg - IH 2 puff BID FRANSISCA Administration Diphenhydramine HCl 25 mg 03/23/16 16:29 03/25/16 23:45 Benadryl - PO 25 mg HS PRN Administration INSOMNIA Ezetimibe 10 mg 03/23/16 10:00 03/24/16 09:57 Zetia - PO 10 mg DAILY FRANSISCA Administration Fenofibric Acid 45 mg 03/23/16 10:00 03/24/16 09:57 Trilipix - PO Not Given DAILY FRANSISCA Fluticasone Propionate 1 spray 03/24/16 11:00 03/25/16 21:36 Flonase - NS 1 spray BID FRANSISCA Administration Guaifenesin 10 ml 03/22/16 22:00 03/25/16 06:45 Robitussin - PO 10 ml Q4H PRN Administration COUGH Heparin Sodium (Porcine) 5,000 unit 03/22/16 22:00 03/25/16 21:36 Heparin - SQ 5,000 unit BID FRANSISCA Administration Levofloxacin 150 mls @ 100 mls/hr 03/23/16 10:00 03/25/16 10:15 Levaquin 750 Mg Premixed Ivpb - IVPB 100 mls/hr DAILY FRANSISCA Administration Sodium Chloride 1,000 mls @ 50 mls/hr 03/25/16 14:44 Normal Saline - IV 03/26/16 10:07 ASDIR FRANSISCA Ibuprofen 400 mg 03/23/16 11:37 03/26/16 05:30 Motrin - PO 400 mg Q6H PRN Administration PAIN Ondansetron HCl 4 mg 03/22/16 20:05 Zofran Injection IVPB Q6H PRN NAUSEA Prednisone 40 mg 03/24/16 11:00 03/25/16 10:15 Deltasone - PO 03/28/16 10:01 40 mg DAILY FRANSISCA Administration Ranitidine HCl 150 mg 03/25/16 10:00 03/25/16 10:15 Zantac - PO 150 mg DAILY FRANSISCA Administration Zolpidem Tartrate 5 mg 03/25/16 09:01 Ambien - PO HS PRN INSOMNIA Microbiology 03/22/16 16:20 Blood - Peripheral Venous Blood Culture - Preliminary NO GROWTH OBTAINED AFTER 72 HOURS, INCUBATION TO CONTINUE FOR 2 DAYS. 03/22/16 16:30 Blood - Peripheral Venous Blood Culture - Preliminary NO GROWTH OBTAINED AFTER 72 HOURS, INCUBATION TO CONTINUE FOR 2 DAYS. 03/22/16 16:20 Urine - Urine Clean Catch Urine Culture - Final NO GROWTH OBTAINED 03/22/16 16:20 Urine For Antigen Detection Legionella Antigen - Final, negative 03/22/16 16:20 Urine For Antigen Detection Streptococcus pneumoniae Antigen (M - Final, negative 03/22/16 16:05 Nasopharyngeal Swab Influenza Types A,B Antigen (MICHAEL) - Final , negative ASSESSMENT/PLAN: ) Pulm - chest xray (03/22), small billateral pleural effusions - ct of chest, billateral pleural effusions r>L, borderline cardiomegaly, bilateral pulmonary nodules, ? malignancy - continue levaquin, day 4 - RSV negative, pending sputum culture - continue when necessary Combivent, Symbicort, agreed with pulmonary Solu- Medrol 40 mg 3 times a day - pulmonary consulted and following 2) Heme - leukocytosis WBC 15.8 likely secondary to prednisone and allergic reaction - eosinophilia noted, secondary to allergic reaction vs vasculitis - appreciate appreciate ID input 3) GI - transaminitis noted, benign abdominal exam, tbilli wnl, likely secondary to infection, mono negative close monitoring - hold zetia and fenobriate 4) Card - pmh of hyperlipidemia, will hold fenobriate and zetia due to transanimitis - bnp negative, cardiomegly noted on ct scan, pending echo - continue low cholestrol diet 5) neuro - reports headaches have improved - CT of head negative - continue prn fiorcet f/e/n -low cholesterol diet - d/c ivf ppx zantac dispo: requires inpatient care Visit type - Emergency Visit Emergency Visit: Yes ED Registration Date: 03/22/16 Care time: The patient presented to the Emergency Department on the above date and was hospitalized for further evaluation of their emergent condition. - New Patient This patient is new to me today: No - Critical Care Critical Care patient: No - Discharge Referral Referred to [facility] Med P.C.: No
[2016-03-26] MEDS ORDERED: PT OWN MED DRAWER 7, Y5N ONE (09:09)
[2016-03-26] MEDS ORDERED: MAGNESIUM SULF 50% (8.12 MEQ/2 ML-1 GM VIAL) ONE (09:31)
[2016-03-26] MEDS: predniSONE 20 MG TABLET (UD) PO SCH (09:45)
[2016-03-26] MEDS ORDERED: MAGNESIUM SULF 50% (8.12 MEQ/2 ML-1 GM VIAL) IVPB ONE (09:45)
[2016-03-26] MEDS: FLUTICASONE PROP 0.05% 16 GM NASAL SPRAY NS SCH ×2 (09:46→21:49)
[2016-03-26] MEDS: RANITIDINE HCL 150 MG TABLET (FP) PO SCH (09:47)
[2016-03-26] MEDS: LEVOFLOXACIN 750 MG IVPB 150 ML IVPB SCH (09:47)
[2016-03-26] MEDS: BUDESONIDE/FORMETEROL FUMARATE 80/4.5 mcg INHALER IH SCH ×2 (09:48→21:49)
[2016-03-26] MEDS: ACYCLOVIR 400 MG TABLET PO SCH (09:50)
[2016-03-26] MEDS: guaiFENesin 200 MG/10 ML 10 ML UNIT-DOSE CUPS PO PRN (10:01)
[2016-03-26] MEDS: HEPARIN NA (PORCINE) 5,000 UNITS/ML 1ML VIAL SQ SCH ×2 (10:02→21:49)
--- NOTE | 2016-03-26 10:30 | PN ---
Progress Note (short form) - Note Progress Note: PULMONARY CONSULTATION DICTATED 03/26/16 IMP BILATERAL PULMONARY NODULES LIKELY INFLAMMATORY ,?INFECTIOUS,?MALIGNANT ACUTE ASTHMATIC BRONCHITIS EOSINOPHILIA ?ALLERGIC RX,?INFECTIOUS,VASCULITIS S/P ALLERGIC RX PERICARDIAL EFFUSION BILATERAL PLEURAL EFFUSION LIKELY REACTIVE ELEVATED LFTS PLAN IV STEROIDS INHALED BRONCODILATORS NASAL O2 ANTIBIOTICS CRP,ESR MONITOR LFTS ECHO DR OLIVER Problem List - Problems (1) Pneumonia Code(s): J18.9 - PNEUMONIA, UNSPECIFIED ORGANISM Qualifiers: Pneumonia type: due to unspecified organism Laterality: unspecified laterality Lung location: unspecified part of lung Qualified Code(s): J18.9 - Pneumonia, unspecified organism (2) Allergic reaction Code(s): T78.40XA - ALLERGY, UNSPECIFIED, INITIAL ENCOUNTER Qualifiers: Encounter type: initial encounter Qualified Code(s): T78.40XA - Allergy , unspecified, initial encounter (3) Parotitis Code(s): K11.20 - SIALOADENITIS, UNSPECIFIED (4) Eosinophilia Code(s): D72.1 - EOSINOPHILIA (5) Pulmonary nodules/lesions, multiple Code(s): R91.8 - OTHER NONSPECIFIC ABNORMAL FINDING OF LUNG FIELD
[2016-03-26] MEDS: methylPREDNISolone NA SUCC 40 MG/1 ML VIAL IVPB SCH ×2 (11:48→17:52)
--- NOTE | 2016-03-26 11:50 | CONS ---
DATE OF CONSULTATION: 03/26/2016 REFERRING PHYSICIAN: Xin Taylor NP HISTORY: The patient is a 70-year-old white female with a past medical history of hyperlipidemia, history of zoster admitted to [facility] on March 22 with complaint of a nonproductive cough, headache, fever, nausea, and vomiting. The patient apparently is from [place]. Friday, prior to admission, she went to the local ER secondary to parotitis. She was prescribed Keflex. She did not take the Keflex but went to the [facility] ER on complaining of the above symptoms. She was started on Keflex. After she started taking Keflex, she started developing itching and periorbital edema. She went back to the ER at which time she was treated with Benadryl and steroids and transferred to the floor for further management. She has a history of multiple allergies including PENICILLIN for which she develops anaphylaxis. There is no history of occupational exposure to chemicals or fumes. There is no history of DVT or PE in the past. She denies any history of COPD or asthma in the past. She is a nonsmoker. The patient under current hospitalization was started on IV prednisone and antibiotics with some clinical improvement. Of note, she was noted to have markedly elevated eosinophil count on March 24. The patient underwent a CT scan of the chest which revealed evidence of bilateral pulmonary nodules, a small bilateral effusion, atelectatic changes of the lower lobe, some mild mediastinal adenopathy, borderline cardiomyopathy, and trace pericardial effusion. PAST MEDICAL HISTORY: Again includes hyperlipidemia. SOCIAL HISTORY: Nonsmoker. No occupational exposures. REVIEW OF SYSTEMS: Positive cough, positive wheezing, positive chest congestion , positive dyspnea with fever, chills. Positive orthopnea. No abdominal pain. Nausea status post taking doxycycline. CURRENT MEDICATIONS: Include Zofran, Symbicort, Deltasone, Fioricet, Zovirax, Levaquin, heparin, Ambien, DuoNeb, Zetia, Flonase, Benadryl, guaifenesin, Trileptal, and Motrin. PHYSICAL EXAMINATION: General: The patient is a well-developed, well-nourished female awake and alert in no acute distress. Vital Signs: She is currently afebrile. Blood pressure is 127/55, respiratory rate is 16, O2 saturation is 94% on room air. HEENT: Normocephalic and atraumatic. Neck: Supple. Heart: Regular. S1, S2. Chest: Scattered bilateral wheezes. Abdomen: Soft. Bowel sounds are positive. Extremities: No cyanosis or edema. LABORATORIES: WBC 15.8, hemoglobin 10.2, hematocrit 30.4 with a platelet count of 314,000. Differential: 49 polys, 13 lymphocytes, 7 monocytes, and 28 eosinophils. BUN 9, creatinine 0.6. LFTs are normal. AST 127, ALT 154, alkaline phosphatase 253. UA is 2+ bilirubin. Chest CT as noted earlier. IMPRESSION: 1. Cough, bronchospasm; bilateral pulmonary nodules, most likely inflammatory, although cannot exclude malignancy, although the patient states she had a normal mammogram as well as normal colonoscopy recently. Pneumonia typical versus atypical. 2. Elevated eosinophils most likely secondary to allergic reaction, cannot exclude possible infiltrates associated with pneumonia. 3. Status post allergic reaction. 4. Elevated liver function tests, etiology to be determined. Possible infectious, inflammatory. PLAN: Increase IV steroids, inhaled bronchodilators, supplemental O2. Echocardiogram for pericardial effusion as well as abdominal ultrasound. Monitor LFTs. Will also obtain follow up chest CT in 4-6 weeks to document resolution of pulmonary nodules. EDWARDO OLIVER M.D. [id number] MTDD
[2016-03-26] MEDS: ZOLPIDEM TARTRATE 5 MG TABLET PO PRN (23:45)
[2016-03-26] MEDS: ONDANSETRON 4 MG/2 ML VIAL IVPB PRN (23:45)
[2016-03-27] MEDS: methylPREDNISolone NA SUCC 40 MG/1 ML VIAL IVPB SCH ×3 (02:59→21:41)
[2016-03-27] MEDS: IBUPROFEN 400 MG TABLET (FP) PO PRN (06:00)
[2016-03-27 08:19] LABS: BASOPHIL 0.3 % (0-2.0); MCH 30.5 pg (25.7-33.7); MCHC 33.4 g/dl (32.0-36.0); MEAN CELL VOLUME 91.2 fl (80-96); MEAN PLT VOLUME 7.7 fl (7.5-11.1); NEUTROPHILS 73.7 % (42.8-82.8); PLATELET COUNT 381 K/MM3 (134-434); RDW 13.8 % (11.6-15.6); WHITE BLOOD COUNT 13.7 K/mm3 (4.0-10.0)
[2016-03-27 08:35] LABS: ALBUMIN 3.2 g/dl (3.5-5.0); ALK PHOS 248 U/L (32-92); ANION GAP 9 (8-16); BILIRUBIN,TOTAL 0.7 mg/dl (0.2-1.0); CALCIUM 9.2 mg/dl (8.4-10.2); CO2 25 mmol/L (22-28); CREATININE 0.4 mg/dl (0.6-1.3); GLUCOSE,RANDOM 129 mg/dl (74-106); MAGNESIUM 1.8 mg/dL (1.8-2.4); SGOT/AST 116 U/L (10-42); SGPT/ALT 160 U/L (10-40); TOT PROT 6.2 g/dl (6.4-8.3)
[2016-03-27] MEDS ORDERED: PT OWN MED DRAWER 7, Y5N ONE (10:08)
--- NOTE | 2016-03-27 10:11 | PN ---
Progress Note, Physician History of Present Illness: PULMONARY ALERT,FEELING BETTER,SOB IMPROVING - Current Medication List Current Medications: Active Medications Acyclovir (Zovirax -) 400 mg PO DAILY [facility] Last Admin: 03/26/16 09:50 Dose: 400 mg Albuterol/Ipratropium (Duoneb -) 1 amp NEB Q6H PRN PRN Reason: COUGH Last Admin: 03/26/16 05:30 Dose: 1 amp Budesonide/Formoterol Fumarate (Symbicort 80/4.5mcg -) 2 puff IH BID [facility] Last Admin: 03/26/16 21:49 Dose: 2 puff Diphenhydramine HCl (Benadryl -) 25 mg PO HS PRN PRN Reason: INSOMNIA Last Admin: 03/25/16 23:45 Dose: 25 mg Ezetimibe (Zetia -) 10 mg PO DAILY [facility] Last Admin: 03/24/16 09:57 Dose: 10 mg Fenofibric Acid (Trilipix -) 45 mg PO DAILY [facility] Last Admin: 03/24/16 09:57 Dose: Not Given Fluticasone Propionate (Flonase -) 1 spray NS BID [facility] Last Admin: 03/26/16 21:49 Dose: 1 spray Guaifenesin (Robitussin -) 10 ml PO Q4H PRN PRN Reason: COUGH Last Admin: 03/26/16 10:01 Dose: 10 ml Heparin Sodium (Porcine) (Heparin -) 5,000 unit SQ BID [facility] Last Admin: 03/26/16 21:49 Dose: 5,000 unit Levofloxacin (Levaquin 750 Mg Premixed Ivpb -) 150 mls @ 100 mls/hr IVPB DAILY [facility] Last Admin: 03/26/16 09:47 Dose: 100 mls/hr Ibuprofen (Motrin -) 400 mg PO Q6H PRN PRN Reason: PAIN Last Admin: 03/27/16 06:00 Dose: 400 mg Methylprednisolone Sodium Succinate (Solu-Medrol -) 40 mg IVPB Q8H-IV [facility] Last Admin: 03/27/16 02:59 Dose: 40 mg Ondansetron HCl (Zofran Injection) 4 mg IVPB Q6H PRN PRN Reason: NAUSEA Last Admin: 03/26/16 23:45 Dose: 4 mg Ranitidine HCl (Zantac -) 150 mg PO DAILY [facility] Last Admin: 03/26/16 09:47 Dose: 150 mg Zolpidem Tartrate (Ambien -) 5 mg PO HS PRN PRN Reason: INSOMNIA Last Admin: 03/26/16 23:45 Dose: 5 mg - Objective Vital Signs: Vital Signs Temperature 97.6 F 03/27/16 06:00 Pulse Rate 63 03/27/16 06:00 Respiratory Rate 19 03/27/16 06:00 Blood Pressure 166/67 03/27/16 06:00 O2 Sat by Pulse Oximetry (%) 93 L 03/27/16 06:00 Constitutional: Yes: Well Nourished, Calm Eyes: Yes: WNL HENT: Yes: WNL Neck: Yes: WNL Cardiovascular: Yes: Regular Rate and Rhythm, S1, S2 Respiratory: Yes: CTA Bilaterally Gastrointestinal: Yes: WNL Extremities: Yes: WNL Edema: No Labs: CBC, BMP 03/27/16 07:31 03/27/16 07:31 Problem List - Problems (1) Pneumonia Code(s): J18.9 - PNEUMONIA, UNSPECIFIED ORGANISM Qualifiers: Pneumonia type: due to unspecified organism Laterality: unspecified laterality Lung location: unspecified part of lung Qualified Code(s): J18.9 - Pneumonia, unspecified organism (2) Allergic reaction Code(s): T78.40XA - ALLERGY, UNSPECIFIED, INITIAL ENCOUNTER Qualifiers: Encounter type: initial encounter Qualified Code(s): T78.40XA - Allergy , unspecified, initial encounter (3) Parotitis Code(s): K11.20 - SIALOADENITIS, UNSPECIFIED (4) Eosinophilia Code(s): D72.1 - EOSINOPHILIA (5) Pulmonary nodules/lesions, multiple Code(s): R91.8 - OTHER NONSPECIFIC ABNORMAL FINDING OF LUNG FIELD Assessment/Plan IMP BILATERAL PULMONARY NODULES LIKELY INFLAMMATORY ,?INFECTIOUS,?MALIGNANT ACUTE ASTHMATIC BRONCHITIS EOSINOPHILIA IMPROVED S/P ALLERGIC RX PERICARDIAL EFFUSION BILATERAL PLEURAL EFFUSION LIKELY REACTIVE ELEVATED LFTS PLAN IV STEROIDS SAME DOSE INHALED BRONCODILATORS NASAL O2 ANTIBIOTICS MONITOR LFTS F/U CHEST CT 4-6WKS OUTPATIENT DR OLIVER Problem List - Problems (1) Pneumonia Code(s): J18.9 - PNEUMONIA, UNSPECIFIED ORGANISM Qualifiers: Pneumonia type: due to unspecified organism Laterality: unspecified laterality Lung location: unspecified part of lung Qualified Code(s): J18.9 - Pneumonia, unspecified organism (2) Allergic reaction Code(s): T78.40XA - ALLERGY, UNSPECIFIED, INITIAL ENCOUNTER Qualifiers: Encounter type: initial encounter Qualified Code(s): T78.40XA - Allergy , unspecified, initial encounter (3) Parotitis Code(s): K11.20 - SIALOADENITIS, UNSPECIFIED (4) Eosinophilia Code(s): D72.1 - EOSINOPHILIA (5) Pulmonary nodules/lesions, multiple Code(s): R91.8 - OTHER NONSPECIFIC ABNORMAL FINDING OF LUNG FIELD
--- NOTE | 2016-03-27 10:16 | PN ---
Progress Note (short form) - Note Progress Note: ID Consult dictated Probable viral parotitis (resolved) S/P Allergic rxn to cephalosporin URI Pulmonary nodules Advise po levaquin to complete 7d course Outpatient pulmonary follow up for lung nodules
[2016-03-27] MEDS: FLUTICASONE PROP 0.05% 16 GM NASAL SPRAY NS SCH ×2 (10:18→21:44)
[2016-03-27] MEDS: LEVOFLOXACIN 750 MG IVPB 150 ML IVPB SCH (10:18)
[2016-03-27] MEDS: HEPARIN NA (PORCINE) 5,000 UNITS/ML 1ML VIAL SQ SCH ×2 (10:18→21:43)
[2016-03-27] MEDS: BUDESONIDE/FORMETEROL FUMARATE 80/4.5 mcg INHALER IH SCH ×2 (10:19→21:44)
[2016-03-27] MEDS: ACYCLOVIR 400 MG TABLET PO SCH (10:20)
[2016-03-27] MEDS: RANITIDINE HCL 150 MG TABLET (FP) PO SCH (10:21)
[2016-03-27] MEDS: FENOFIBRIC ACID 45 MG CAP PO SCH (10:21)
[2016-03-27] MEDS: EZETIMIBE 10 MG TABLET (FP) PO SCH (10:21)
[2016-03-27] MEDS: traMADol HCL 50 MG TABLET PO PRN (10:30)
--- NOTE | 2016-03-27 11:42 | CONS ---
DATE OF CONSULTATION: DATE OF DICTATION: 03/27/2016 INFECTIOUS DISEASE CONSULTATION HISTORY OF PRESENT ILLNESS: The patient is a 70-year-old female who is evaluated for possible pneumonia. The patient is visiting from [place]. In [place], she had developed bilateral parotid swelling and pain. She was evaluated in the hospital in [place], where she reports blood work and a CAT scan was done. The blood work and CAT scan, according to the patient, were unrevealing. She was given Keflex. She presented to the emergency room in [place] on March 19, 2016, with worsening bilateral parotid swelling as well as generalized pruritus, and bilateral periorbital edema. She was felt to have an allergic reaction to KEFLEX. The patient was treated symptomatically. She was discharged home. She presented to the emergency room at _[facility] on March 21 with pulmonary complaints and was given doxycycline for presume pneumonia. She returned to the emergency room at [facility] on March 22, 2016, with increasing cough, shortness of breath, and headache. The patient was felt to have pneumonia, was noted to have leukocytosis, eosinophilia, and hyponatremia. She was admitted to the hospital. A CAT scan of the chest revealed pulmonary nodules, small pleural effusions, and mediastinal adenopathy. Patient is now completing a course of Levaquin for possible pneumonia. She reports clinically feeling well. Her bilateral parotid swelling has resolved. She is afebrile on steroids. Her white blood cell count has improved, and eosinophilia has resolved. According to the notes, she reports having mumps vaccine in childhood. She denied any exposure to possible mumps cases. She reports no fevers or chills. PAST MEDICAL HISTORY: Positive for hyperlipidemia. ALLERGIES: PENICILLIN, SULFA, and now KEFLEX. Patient reports developing a moderately severe rash with PENICILLIN in the past. SOCIAL HISTORY: She lives in [place] with her . She is a nonsmoker. Nondrinker. Denies risk factors for HIV. States she tested HIV negative in the past as well, and her has tested HIV negative in the past. MEDICATION: Include Zovirax, Zetia, fenofibrate. SYSTEMS REVIEW: Neurologic: Positive for headache. No loss of consciousness, seizure activity, or focal weakness. Cardiac: Negative chest pain or palpitations. Respiratory: As per HPI. Gastrointestinal: Negative vomiting or diarrhea. Genitourinary: Negative for urinary tract infection. LABORATORY DATA: White count 13.7, 4 eosinophils, hematocrit 32.7, platelet count 381. BUN 12, creatinine 0.4. Blood cultures negative. Monospot negative. Mumps IGM negative. EBV IGM negative. PHYSICAL EXAMINATION: General: She is awake and alert. She is out of bed to chair. Nontoxic appearing. Vital signs: Temperature 97.6, blood pressure 166/67, pulse 63 regular, respirations 19 per minute. HEENT: Sclerae anicteric. Oropharynx negative. Neck: Supple. There is no parotid swelling or tenderness present. No rash or periorbital edema. Cardiovascular: Heart sounds S1, S2. Respiratory: Lungs clear. Abdomen: Soft. No tenderness elicited. No palpable liver or spleen. Extremities: Negative for edema. IMPRESSION: 1. Probable viral parotiditis now resolved. 2. Status post allergic reaction to CEPHALOSPORIN. 3. Upper respiratory tract infection. 4. Pulmonary nodules. Patient's bilateral parotid swelling, likely viral parotidis. Serology negative for mumps. No evidence to suggest a suppurative parotidis. Would switch to p.o. Levaquin to complete a 7-day course for URI. Outpatient pulmonary followup for lung nodules, tapering course of steroids for allergic reaction. Leukocytosis and eosinophilia: leukocytosis likely steroid induced, and eosinophilia likely secondary to hypersensitivity reaction; both are improved. Patient was offered HIV testing; however, declined. Thank you for the kind referral. MONICA HALL M.D. [id number]
--- NOTE | 2016-03-27 14:58 | PN ---
Physical Exam: SUBJECTIVE: Patient seen and examined, patient reports feeling better does report pain to upper back after coughing, pt reports a history of upper back pain, denies any chest pain or shortness of breath. OBJECTIVE:patient is a 70 year old female with a past medical history of hyperlipidemia and left ocular zoster. patient was admitted from the emergency department for bilateral pleural effusions and hyponatremia. Vital Signs Period Temp Pulse Resp BP Sys/Shannon Pulse Ox Last 24 Hr 97.6 F-98.7 F 57-63 17-19 138-166/58-68 93-95 GENERAL: The patient is awake, alert, and fully oriented, in no acute distress. HEAD: Normal with no signs of trauma. EYES: PERRL, extraocular movements intact, sclera anicteric, conjunctiva clear. No ptosis. ENT: Ears normal, nares patent, oropharynx clear without exudates, moist mucous membranes. NECK: Trachea midline, full range of motion, supple. MUSC: paraspinal tenderness noted to T4 and T5 LUNGS: Breath sounds equal, diminished to base, no crackles noted (improved), no wheezes, no accessory muscle use, HEART: Regular rate and rhythm, S1, S2 without murmur, rub or gallop. ABDOMEN: Soft, nontender, nondistended, normoactive bowel sounds, no guarding, no rebound, no hepatosplenomegaly, no masses. EXTREMITIES: 2+ pulses, warm, well-perfused, no edema. NEUROLOGICAL: Cranial nerves II through XII grossly intact. Normal speech, gait not observed. PSYCH: Normal mood, normal affect. SKIN: Warm, dry, normal turgor, no rashes or lesions noted Laboratory Results - last 24 hr 03/27/16 03/27/16 07:31 07:31 WBC 13.7 H RBC 3.58 L Hgb 10.9 Hct 32.7 MCV 91.2 MCHC 33.4 RDW 13.8 Plt Count 381 D MPV 7.7 Neutrophils % 73.7 D Lymphocytes % 13.6 Monocytes % 8.4 Eosinophils % 4.0 D Basophils % 0.3 Sodium 132 L Potassium 4.3 Chloride 98 Carbon Dioxide 25 Anion Gap 9 BUN 12 D Creatinine 0.4 L D Creat Clearance w eGFR > 60 Random Glucose 129 H D Calcium 9.2 Magnesium 1.8 Total Bilirubin 0.7 AST 116 H ALT 160 H Alkaline Phosphatase 248 H Total Protein 6.2 L Albumin 3.2 L Active Medications Generic Name Dose Route Start Last Admin Trade Name Freq PRN Reason Stop Dose Admin Acyclovir 400 mg 03/23/16 10:00 03/27/16 10:20 Zovirax - PO 400 mg DAILY FRANSISCA Administration Albuterol/Ipratropium 1 amp 03/25/16 15:04 03/26/16 05:30 Duoneb - NEB 1 amp Q6H PRN Administration COUGH Budesonide/Formoterol Fumarate 2 puff 03/25/16 22:00 03/27/16 10:19 Symbicort 80/4.5mcg - IH 2 puff BID FRANSISCA Administration Diphenhydramine HCl 25 mg 03/23/16 16:29 03/25/16 23:45 Benadryl - PO 25 mg HS PRN Administration INSOMNIA Ezetimibe 10 mg 03/23/16 10:00 03/27/16 10:21 Zetia - PO 10 mg DAILY FRANSISCA Administration Fenofibric Acid 45 mg 03/23/16 10:00 03/27/16 10:21 Trilipix - PO 45 mg DAILY FRANSISCA Administration Fluticasone Propionate 1 spray 03/24/16 11:00 03/27/16 10:18 Flonase - NS 1 spray BID FRANSISCA Administration Guaifenesin 10 ml 03/22/16 22:00 03/26/16 10:01 Robitussin - PO 10 ml Q4H PRN Administration COUGH Heparin Sodium (Porcine) 5,000 unit 03/22/16 22:00 03/27/16 10:18 Heparin - SQ 5,000 unit BID FRANSISCA Administration Levofloxacin 150 mls @ 100 mls/hr 03/23/16 10:00 03/27/16 10:18 Levaquin 750 Mg Premixed Ivpb - IVPB 100 mls/hr DAILY FRANSISCA Administration Ibuprofen 400 mg 03/23/16 11:37 03/27/16 06:00 Motrin - PO 400 mg Q6H PRN Administration PAIN Methylprednisolone Sodium Succinate 40 mg 03/26/16 11:00 03/27/16 10:19 Solu-Medrol - IVPB 40 mg Q8H-IV FRANSISCA Administration Ondansetron HCl 4 mg 03/22/16 20:05 03/26/16 23:45 Zofran Injection IVPB 4 mg Q6H PRN Administration NAUSEA Ranitidine HCl 150 mg 03/25/16 10:00 03/27/16 10:21 Zantac - PO 150 mg DAILY FRANSISCA Administration Tramadol HCl 50 mg 03/27/16 10:36 03/27/16 10:30 Ultram - PO 50 mg Q6H PRN Administration PAIN Zolpidem Tartrate 5 mg 03/25/16 09:01 03/26/16 23:45 Ambien - PO 5 mg HS PRN Administration INSOMNIA Microbiology 03/22/16 16:20 Blood - Peripheral Venous Blood Culture - Preliminary NO GROWTH OBTAINED AFTER 72 HOURS, INCUBATION TO CONTINUE FOR 2 DAYS. 03/22/16 16:30 Blood - Peripheral Venous Blood Culture - Preliminary NO GROWTH OBTAINED AFTER 72 HOURS, INCUBATION TO CONTINUE FOR 2 DAYS. 03/22/16 16:20 Urine - Urine Clean Catch Urine Culture - Final NO GROWTH OBTAINED 03/22/16 16:20 Urine For Antigen Detection Legionella Antigen - Final, negative 03/22/16 16:20 Urine For Antigen Detection Streptococcus pneumoniae Antigen (M - Final, negative 03/22/16 16:05 Nasopharyngeal Swab Influenza Types A,B Antigen (MICHAEL) - Final , negative ASSESSMENT/PLAN: ) Pulm - chest xray (03/22), small billateral pleural effusions - ct of chest, billateral pleural effusions r>L, borderline cardiomegaly, bilateral pulmonary nodules, ? malignancy--> repeat ct scan in 4-6 weeks - continue levaquin, day 5 - RSV negative, pending sputum culture - continue when necessary Combivent, Symbicort, Solu-Medrol 40 mg 3 times a day with taper - pulmonary consulted and following 2) Heme - leukocytosis WBC 13.7 likely secondary to prednisone and allergic reaction - eosinopil WNL, likely secondary to allergic reaction vs vasculitis - ID consuluted and following 3) GI - transaminitis, LFT's trending downward, likely secondary to infection - hold zetia and fenobriate 4) Card - pmh of hyperlipidemia, will hold fenobriate and zetia due to transanimitis - bnp negative, cardiomegly noted on ct scan, echo, LV WNL, mild mr, tr, as, small pericardial effusion, pleural effusion. - continue low cholestrol diet 5) neuro - denies any headaches - CT of head negative - continue prn fiorcet f/e/n -low cholesterol diet ppx zantac dispo: requires inpatient care Visit type - Emergency Visit Emergency Visit: Yes ED Registration Date: 03/22/16 Care time: The patient presented to the Emergency Department on the above date and was hospitalized for further evaluation of their emergent condition. - New Patient This patient is new to me today: No - Critical Care Critical Care patient: No - Discharge Referral Referred to [facility] Med P.C.: No
[2016-03-27] MEDS: MAGNESIUM OXIDE 400 MG TABLET (FP) PO SCH (21:43)
[2016-03-28] MEDS: ZOLPIDEM TARTRATE 5 MG TABLET PO PRN (00:40)
[2016-03-28] MEDS: methylPREDNISolone NA SUCC 40 MG/1 ML VIAL IVPB SCH ×2 (02:47→09:41)
[2016-03-28] MEDS: traMADol HCL 50 MG TABLET PO PRN ×4 (06:05→20:00)
--- NOTE | 2016-03-28 07:18 | PN ---
Progress Note, Physician History of Present Illness: PULMNONARY ALERT,FEELING BETTER,-COUGH,-SOB - Current Medication List Current Medications: Active Medications Acyclovir (Zovirax -) 400 mg PO DAILY [facility] Last Admin: 03/27/16 10:20 Dose: 400 mg Albuterol/Ipratropium (Duoneb -) 1 amp NEB Q6H PRN PRN Reason: COUGH Last Admin: 03/26/16 05:30 Dose: 1 amp Budesonide/Formoterol Fumarate (Symbicort 80/4.5mcg -) 2 puff IH BID [facility] Last Admin: 03/27/16 21:44 Dose: 2 puff Diphenhydramine HCl (Benadryl -) 25 mg PO HS PRN PRN Reason: INSOMNIA Last Admin: 03/25/16 23:45 Dose: 25 mg Ezetimibe (Zetia -) 10 mg PO DAILY [facility] Last Admin: 03/27/16 10:21 Dose: 10 mg Fenofibric Acid (Trilipix -) 45 mg PO DAILY [facility] Last Admin: 03/27/16 10:21 Dose: 45 mg Fluticasone Propionate (Flonase -) 1 spray NS BID [facility] Last Admin: 03/27/16 21:44 Dose: 1 spray Guaifenesin (Robitussin -) 10 ml PO Q4H PRN PRN Reason: COUGH Last Admin: 03/26/16 10:01 Dose: 10 ml Heparin Sodium (Porcine) (Heparin -) 5,000 unit SQ BID [facility] Last Admin: 03/27/16 21:43 Dose: 5,000 unit Levofloxacin (Levaquin 750 Mg Premixed Ivpb -) 150 mls @ 100 mls/hr IVPB DAILY [facility] Last Admin: 03/27/16 10:18 Dose: 100 mls/hr Ibuprofen (Motrin -) 400 mg PO Q6H PRN PRN Reason: PAIN Last Admin: 03/27/16 06:00 Dose: 400 mg Magnesium Oxide (Mag-Ox -) 400 mg PO BID [facility] Last Admin: 03/27/16 21:43 Dose: 400 mg Methylprednisolone Sodium Succinate (Solu-Medrol -) 40 mg IVPB Q8H-IV [facility] Last Admin: 03/28/16 02:47 Dose: 40 mg Ondansetron HCl (Zofran Injection) 4 mg IVPB Q6H PRN PRN Reason: NAUSEA Last Admin: 03/26/16 23:45 Dose: 4 mg Ranitidine HCl (Zantac -) 150 mg PO DAILY FRANSISCA Last Admin: 03/27/16 10:21 Dose: 150 mg Tramadol HCl (Ultram -) 50 mg PO Q6H PRN PRN Reason: PAIN Last Admin: 03/28/16 06:05 Dose: 50 mg Zolpidem Tartrate (Ambien -) 5 mg PO HS PRN PRN Reason: INSOMNIA Last Admin: 03/28/16 00:40 Dose: 5 mg - Objective Vital Signs: Vital Signs Temperature 98.6 F 03/28/16 06:00 Pulse Rate 60 03/28/16 06:00 Respiratory Rate 18 03/28/16 06:00 Blood Pressure 144/75 03/28/16 06:00 O2 Sat by Pulse Oximetry (%) 94 L 03/28/16 06:25 Constitutional: Yes: Well Nourished, Calm Eyes: Yes: WNL HENT: Yes: WNL Neck: Yes: WNL Cardiovascular: Yes: Regular Rate and Rhythm, S1, S2 Respiratory: Yes: CTA Bilaterally Gastrointestinal: Yes: WNL Extremities: Yes: WNL Edema: No Labs: Laboratory Tests 03/28/16 08:30 WBC 16.0 H RBC 3.61 Hgb 10.8 Hct 33.2 MCV 92.0 MCHC 32.6 RDW 13.8 Plt Count 399 Neutrophils % 77.4 Lymphocytes % 11.4 Monocytes % 9.8 Eosinophils % 1.1 Laboratory Tests 03/28/16 08:30 Sodium 134 L Potassium 4.5 Chloride 99 Carbon Dioxide 28 Anion Gap 7 L BUN 13 Creatinine 0.5 L D Creat Clearance w eGFR > 60 Random Glucose 138 H Calcium 9.6 Phosphorus 4.2 D Magnesium 1.9 AST 54 H D ALT 117 H D Alkaline Phosphatase 214 H Total Protein 6.1 L Albumin 3.2 L Problem List - Problems (1) Pneumonia Code(s): J18.9 - PNEUMONIA, UNSPECIFIED ORGANISM Qualifiers: Pneumonia type: due to unspecified organism Laterality: unspecified laterality Lung location: unspecified part of lung Qualified Code(s): J18.9 - Pneumonia, unspecified organism (2) Allergic reaction Code(s): T78.40XA - ALLERGY, UNSPECIFIED, INITIAL ENCOUNTER Qualifiers: Encounter type: initial encounter Qualified Code(s): T78.40XA - Allergy , unspecified, initial encounter (3) Parotitis Code(s): K11.20 - SIALOADENITIS, UNSPECIFIED (4) Eosinophilia Code(s): D72.1 - EOSINOPHILIA (5) Pulmonary nodules/lesions, multiple Code(s): R91.8 - OTHER NONSPECIFIC ABNORMAL FINDING OF LUNG FIELD Assessment/Plan IMP BILATERAL PULMONARY NODULES LIKELY INFLAMMATORY ,?INFECTIOUS,?MALIGNANT ACUTE ASTHMATIC BRONCHITIS EOSINOPHILIA IMPROVED S/P ALLERGIC RX PERICARDIAL EFFUSION BILATERAL PLEURAL EFFUSION LIKELY REACTIVE ELEVATED LFTS PLAN PREDNISONE 40 INHALED BRONCHODILATORS NASAL O2 ANTIBIOTICS PER ID MONITOR LFTS F/U CHEST CT 4-6WKS OUTPATIENT DR OLIVER Problem List - Problems (1) Pneumonia Code(s): J18.9 - PNEUMONIA, UNSPECIFIED ORGANISM Qualifiers: Pneumonia type: due to unspecified organism Laterality: unspecified laterality Lung location: unspecified part of lung Qualified Code(s): J18.9 - Pneumonia, unspecified organism (2) Allergic reaction Code(s): T78.40XA - ALLERGY, UNSPECIFIED, INITIAL ENCOUNTER Qualifiers: Encounter type: initial encounter Qualified Code(s): T78.40XA - Allergy , unspecified, initial encounter (3) Parotitis Code(s): K11.20 - SIALOADENITIS, UNSPECIFIED (4) Eosinophilia Code(s): D72.1 - EOSINOPHILIA (5) Pulmonary nodules/lesions, multiple Code(s): R91.8 - OTHER NONSPECIFIC ABNORMAL FINDING OF LUNG FIELD
[2016-03-28 09:00] LABS: BASOPHIL 0.3 % (0-2.0); EOSINOPHIL 1.1 % (0-4.5); MCHC 32.6 g/dl (32.0-36.0); MEAN PLT VOLUME 7.6 fl (7.5-11.1); NEUTROPHILS 77.4 % (42.8-82.8); PLATELET COUNT 399 K/MM3 (134-434); RDW 13.8 % (11.6-15.6)
[2016-03-28 09:08] LABS: ALBUMIN 3.2 g/dl (3.5-5.0); ALK PHOS 214 U/L (32-92); ANION GAP 7 (8-16); BILIRUBIN,TOTAL 0.5 mg/dl (0.2-1.0); CALCIUM 9.6 mg/dl (8.4-10.2); CO2 28 mmol/L (22-28); CREATININE 0.5 mg/dl (0.6-1.3); GLUCOSE,RANDOM 138 mg/dl (74-106); MAGNESIUM 1.9 mg/dL (1.8-2.4); PHOSPHOROUS 4.2 mg/dl (2.5-4.6); SGOT/AST 54 U/L (10-42); SGPT/ALT 117 U/L (10-40); TOT PROT 6.1 g/dl (6.4-8.3)
[2016-03-28] MEDS ORDERED: PT OWN MED DRAWER 7, Y5N ONE ×2 (09:34→21:28)
[2016-03-28] MEDS: ACYCLOVIR 400 MG TABLET PO SCH (09:41)
[2016-03-28] MEDS: RANITIDINE HCL 150 MG TABLET (FP) PO SCH (09:41)
[2016-03-28] MEDS: BUDESONIDE/FORMETEROL FUMARATE 80/4.5 mcg INHALER IH SCH ×2 (09:41→21:39)
[2016-03-28] MEDS: IBUPROFEN 400 MG TABLET (FP) PO PRN ×2 (09:42→23:41)
[2016-03-28] MEDS: MAGNESIUM OXIDE 400 MG TABLET (FP) PO SCH ×2 (09:42→21:39)
[2016-03-28] MEDS: LEVOFLOXACIN 750 MG IVPB 150 ML IVPB SCH (09:42)
[2016-03-28] MEDS: FLUTICASONE PROP 0.05% 16 GM NASAL SPRAY NS SCH ×2 (09:42→21:39)
--- NOTE | 2016-03-28 13:57 | PN ---
[id number] OBJECTIVE: patient is a 70 year old female with a past medical history of hyperlipidemia and left ocular zoster. patient was admitted from the emergency department for bilateral pleural effusions and hyponatremia. Vital Signs Period Temp Pulse Resp BP Sys/Shannon Pulse Ox Last 24 Hr 97.3 F-98.7 F 57-60 17-18 137-150/58-75 94-95 physical examination GENERAL: The patient is awake, alert, and fully oriented, in no acute distress. HEAD: Normal with no signs of trauma. EYES: PERRL, extraocular movements intact, sclera anicteric, conjunctiva clear. No ptosis. ENT: Ears normal, nares patent, oropharynx clear without exudates, moist mucous membranes. NECK: Trachea midline, full range of motion, supple. MUSC: paraspinal tenderness noted to T4 and T5 LUNGS: Breath sounds equal, diminished to base, no crackles noted (improved), no wheezes, no accessory muscle use, HEART: Regular rate and rhythm, S1, S2 without murmur, rub or gallop. ABDOMEN: Soft, nontender, nondistended, normoactive bowel sounds, no guarding, no rebound, no hepatosplenomegaly, no masses. EXTREMITIES: 2+ pulses, warm, well-perfused, no edema. NEUROLOGICAL: Cranial nerves II through XII grossly intact. Normal speech, gait not observed. PSYCH: Normal mood, normal affect. SKIN: Warm, dry, normal turgor, no rashes or lesions noted Laboratory Results - last 24 hr 03/28/16 03/28/16 08:30 08:30 WBC 16.0 H RBC 3.61 Hgb 10.8 Hct 33.2 MCV 92.0 MCHC 32.6 RDW 13.8 Plt Count 399 MPV 7.6 Neutrophils % 77.4 Lymphocytes % 11.4 Monocytes % 9.8 Eosinophils % 1.1 Basophils % 0.3 Sodium 134 L Potassium 4.5 Chloride 99 Carbon Dioxide 28 Anion Gap 7 L BUN 13 Creatinine 0.5 L D Creat Clearance w eGFR > 60 Random Glucose 138 H Calcium 9.6 Phosphorus 4.2 D Magnesium 1.9 Total Bilirubin 0.5 D AST 54 H D ALT 117 H D Alkaline Phosphatase 214 H Total Protein 6.1 L Albumin 3.2 L Active Medications Generic Name Dose Route Start Last Admin Trade Name Freq PRN Reason Stop Dose Admin Acyclovir 400 mg 03/23/16 10:00 03/28/16 09:41 Zovirax - PO 400 mg DAILY FRANSISCA Administration Albuterol/Ipratropium 1 amp 03/25/16 15:04 03/26/16 05:30 Duoneb - NEB 1 amp Q6H PRN Administration COUGH Budesonide/Formoterol Fumarate 2 puff 03/25/16 22:00 03/28/16 09:41 Symbicort 80/4.5mcg - IH 2 puff BID FRANSISCA Administration Diphenhydramine HCl 25 mg 03/23/16 16:29 03/25/16 23:45 Benadryl - PO 25 mg HS PRN Administration INSOMNIA Ezetimibe 10 mg 03/23/16 10:00 03/27/16 10:21 Zetia - PO 10 mg DAILY FRANSISCA Administration Fenofibric Acid 45 mg 03/23/16 10:00 03/27/16 10:21 Trilipix - PO 45 mg DAILY FRANSISCA Administration Fluticasone Propionate 1 spray 03/24/16 11:00 03/28/16 09:42 Flonase - NS 1 spray BID [facility] Administration Guaifenesin 10 ml 03/22/16 22:00 03/26/16 10:01 Robitussin - PO 10 ml Q4H PRN Administration COUGH Levofloxacin 150 mls @ 100 mls/hr 03/23/16 10:00 03/28/16 09:42 Levaquin 750 Mg Premixed Ivpb - IVPB 100 mls/hr DAILY FRANSISCA Administration Ibuprofen 400 mg 03/23/16 11:37 03/28/16 09:42 Motrin - PO 400 mg Q6H PRN Administration PAIN Magnesium Oxide 400 mg 03/27/16 22:00 03/28/16 09:42 Mag-Ox - PO Not Given BID [facility] Ondansetron HCl 4 mg 03/22/16 20:05 03/26/16 23:45 Zofran Injection IVPB 4 mg Q6H PRN Administration NAUSEA Prednisone 40 mg 03/29/16 10:00 Deltasone - PO DAILY FRANSISCA Ranitidine HCl 150 mg 03/25/16 10:00 03/28/16 09:41 Zantac - PO 150 mg DAILY FRANSISCA Administration Tramadol HCl 50 mg 03/27/16 10:36 03/28/16 13:47 Ultram - PO 50 mg Q6H PRN Administration PAIN Zolpidem Tartrate 5 mg 03/25/16 09:01 03/28/16 00:40 Ambien - PO 5 mg HS PRN Administration INSOMNIA Microbiology 03/22/16 16:20 Blood - Peripheral Venous Blood Culture - Final NO GROWTH AFTER 5 DAYS INCUBATION 03/22/16 16:30 Blood - Peripheral Venous Blood Culture - Final NO GROWTH AFTER 5 DAYS INCUBATION 03/22/16 16:20 Urine - Urine Clean Catch Urine Culture - Final NO GROWTH OBTAINED 03/22/16 16:20 Urine For Antigen Detection Legionella Antigen - Final, negative 03/22/16 16:20 Urine For Antigen Detection Streptococcus pneumoniae Antigen (M - Final, negative 03/22/16 16:05 Nasopharyngeal Swab Influenza Types A,B Antigen (MICHAEL) - Final , negative ASSESSMENT/PLAN: 1) Pulm - chest xray (03/22), small billateral pleural effusions - ct of chest, billateral pleural effusions r>L, borderline cardiomegaly, bilateral pulmonary nodules, ? malignancy--> repeat ct scan in 4-6 weeks - continue levaquin, day 6 - RSV negative, pending sputum culture - continue when necessary Combivent, Symbicort, transition solu-medrol to prednisione - pulmonary consulted and following 2) Heme - leukocytosis WBC 16.1, likely secondary to prednisone and allergic reaction, continue levaquin transition to PO tommorow - eosinopil WNL, likely secondary to allergic reaction vs vasculitis - ID consuluted and following 3) GI - transaminitis, LFT's trending downward, likely secondary to infection - hold zetia and fenobriate 4) Card - pmh of hyperlipidemia, will hold fenobriate and zetia due to transanimitis - bnp negative, cardiomegly noted on ct scan, echo, LV WNL, mild mr, tr, as, small pericardial effusion, pleural effusion. - continue low cholestrol diet 5) neuro - denies any headaches - CT of head negative - continue prn fiorcet f/e/n -low cholesterol diet ppx zantac dispo: requires inpatient care Visit type - Emergency Visit Emergency Visit: Yes ED Registration Date: 03/22/16 Care time: The patient presented to the Emergency Department on the above date and was hospitalized for further evaluation of their emergent condition. - New Patient This patient is new to me today: No - Critical Care Critical Care patient: No - Discharge Referral Referred to [facility] Med P.C.: No
[2016-03-28 22:28] VITALS: TEMP 98.4
[2016-03-29 00:12] LABS: MYCOPLASMA PNEUMONIAE,IG G AB 2646 U/mL (0-99)
[2016-03-29] MEDS: traMADol HCL 50 MG TABLET PO PRN (02:00)
[2016-03-29 05:59] VITALS: BP 146/64; PULSE 64
--- NOTE | 2016-03-29 08:08 | PN ---
Progress Note, Physician History of Present Illness: PULMONARY ALERT,NAD,-SOB - Current Medication List Current Medications: Active Medications Acyclovir (Zovirax -) 400 mg PO DAILY [facility] Last Admin: 03/28/16 09:41 Dose: 400 mg Albuterol/Ipratropium (Duoneb -) 1 amp NEB Q6H PRN PRN Reason: COUGH Last Admin: 03/26/16 05:30 Dose: 1 amp Budesonide/Formoterol Fumarate (Symbicort 80/4.5mcg -) 2 puff IH BID [facility] Last Admin: 03/28/16 21:39 Dose: 2 puff Diphenhydramine HCl (Benadryl -) 25 mg PO HS PRN PRN Reason: INSOMNIA Last Admin: 03/25/16 23:45 Dose: 25 mg Ezetimibe (Zetia -) 10 mg PO DAILY [facility] Last Admin: 03/27/16 10:21 Dose: 10 mg Fenofibric Acid (Trilipix -) 45 mg PO DAILY [facility] Last Admin: 03/27/16 10:21 Dose: 45 mg Fluticasone Propionate (Flonase -) 1 spray NS BID [facility] Last Admin: 03/28/16 21:39 Dose: 1 spray Guaifenesin (Robitussin -) 10 ml PO Q4H PRN PRN Reason: COUGH Last Admin: 03/26/16 10:01 Dose: 10 ml Levofloxacin (Levaquin 750 Mg Premixed Ivpb -) 150 mls @ 100 mls/hr IVPB DAILY [facility] Last Admin: 03/28/16 09:42 Dose: 100 mls/hr Ibuprofen (Motrin -) 400 mg PO Q6H PRN PRN Reason: PAIN Last Admin: 03/28/16 23:41 Dose: 400 mg Magnesium Oxide (Mag-Ox -) 400 mg PO BID [facility] Last Admin: 03/28/16 21:39 Dose: 400 mg Ondansetron HCl (Zofran Injection) 4 mg IVPB Q6H PRN PRN Reason: NAUSEA Last Admin: 03/26/16 23:45 Dose: 4 mg Prednisone (Deltasone -) 40 mg PO DAILY [facility] Ranitidine HCl (Zantac -) 150 mg PO DAILY [facility] Last Admin: 03/28/16 09:41 Dose: 150 mg Tramadol HCl (Ultram -) 50 mg PO Q6H PRN PRN Reason: PAIN Last Admin: 03/29/16 02:00 Dose: 50 mg Zolpidem Tartrate (Ambien -) 5 mg PO HS PRN PRN Reason: INSOMNIA Last Admin: 03/28/16 00:40 Dose: 5 mg - Objective Vital Signs: Vital Signs Temperature 98.4 F 03/29/16 05:57 Pulse Rate 64 03/29/16 05:57 Respiratory Rate 18 03/29/16 05:57 Blood Pressure 146/64 03/29/16 05:57 O2 Sat by Pulse Oximetry (%) 95 03/29/16 07:58 Constitutional: Yes: Well Nourished, Calm Eyes: Yes: WNL HENT: Yes: WNL Neck: Yes: WNL Cardiovascular: Yes: Regular Rate and Rhythm, S1, S2 Respiratory: Yes: CTA Bilaterally ...Rectal Exam: Yes: WNL Extremities: Yes: WNL Edema: No Labs: CBC, BMP Problem List - Problems (1) Pneumonia Code(s): J18.9 - PNEUMONIA, UNSPECIFIED ORGANISM Qualifiers: Pneumonia type: due to unspecified organism Laterality: unspecified laterality Lung location: unspecified part of lung Qualified Code(s): J18.9 - Pneumonia, unspecified organism (2) Allergic reaction Code(s): T78.40XA - ALLERGY, UNSPECIFIED, INITIAL ENCOUNTER Qualifiers: Encounter type: initial encounter Qualified Code(s): T78.40XA - Allergy , unspecified, initial encounter (3) Parotitis Code(s): K11.20 - SIALOADENITIS, UNSPECIFIED (4) Eosinophilia Code(s): D72.1 - EOSINOPHILIA (5) Pulmonary nodules/lesions, multiple Code(s): R91.8 - OTHER NONSPECIFIC ABNORMAL FINDING OF LUNG FIELD Assessment/Plan IMP BILATERAL PULMONARY NODULES LIKELY INFLAMMATORY ,?INFECTIOUS,?MALIGNANT ACUTE ASTHMATIC BRONCHITIS EOSINOPHILIA IMPROVED S/P ALLERGIC RX PERICARDIAL EFFUSION BILATERAL PLEURAL EFFUSION LIKELY REACTIVE ELEVATED LFTS PLAN PREDNISONE 40mg with taper INHALED BRONCHODILATORS NASAL O2 MONITOR LFTS F/U CHEST CT 4-6WKS OUTPATIENT DR OLIVER Problem List - Problems (1) Pneumonia Code(s): J18.9 - PNEUMONIA, UNSPECIFIED ORGANISM Qualifiers: Pneumonia type: due to unspecified organism Laterality: unspecified laterality Lung location: unspecified part of lung Qualified Code(s): J18.9 - Pneumonia, unspecified organism (2) Allergic reaction Code(s): T78.40XA - ALLERGY, UNSPECIFIED, INITIAL ENCOUNTER Qualifiers: Encounter type: initial encounter Qualified Code(s): T78.40XA - Allergy , unspecified, initial encounter (3) Parotitis Code(s): K11.20 - SIALOADENITIS, UNSPECIFIED (4) Eosinophilia Code(s): D72.1 - EOSINOPHILIA (5) Pulmonary nodules/lesions, multiple Code(s): R91.8 - OTHER NONSPECIFIC ABNORMAL FINDING OF LUNG FIELD
--- NOTE | 2016-03-29 08:29 | DS ---
[id number]: patient is a 70 year old female with a past medical history of hyperlipidemia and left ocular zoster who presents with persistent cough, headache, nausea and vomiting for several days. She was treated at [facility] yesterday and started on doxycycline for PNA but was unable to keep it down. She was recently seen in an ED in [place] about one week ago for "salivary gland swelling" where she was started on keflex. She then developed itching of the face and periorbital edema. She was seen here in the ED for this and treated with benadryl. She also reported wheezing at that time and was given a prescription for albuterol inhaler. Upon exam, she is complaining of dry mouth and headache in addition to the cough. She denies any chest pain or SOB. ER course was notable for: (1) WBC 18.2 (2) Na 129 Vital Signs Period Temp Pulse Resp BP Sys/Shannon Pulse Ox Last 24 Hr 98.3 F-98.4 F 59-64 18-18 126-154/50-65 92-95 PHYSICAL EXAM GENERAL: The patient is awake, alert, and fully oriented, in no acute distress. HEAD: Normal with no signs of trauma. EYES: PERRL, extraocular movements intact, sclera anicteric, conjunctiva clear. No ptosis. ENT: Ears normal, nares patent, oropharynx clear without exudates, moist mucous membranes. NECK: Trachea midline, full range of motion, supple. MUSC: paraspinal tenderness noted to T4 and T5 LUNGS: Breath sounds equal, diminished to base, no crackles noted (improved), no wheezes, no accessory muscle use, HEART: Regular rate and rhythm, S1, S2 without murmur, rub or gallop. ABDOMEN: Soft, nontender, nondistended, normoactive bowel sounds, no guarding, no rebound, no hepatosplenomegaly, no masses. EXTREMITIES: 2+ pulses, warm, well-perfused, no edema. NEUROLOGICAL: Cranial nerves II through XII grossly intact. Normal speech, gait not observed. PSYCH: Normal mood, normal affect. SKIN: Warm, dry, normal turgor, no rashes or lesions noted LABS Laboratory Results - last 24 hr 03/27/16 03/28/16 03/28/16 07:31 08:30 08:30 WBC 16.0 H RBC 3.61 Hgb 10.8 Hct 33.2 MCV 92.0 MCHC 32.6 RDW 13.8 Plt Count 399 MPV 7.6 Neutrophils % 77.4 Lymphocytes % 11.4 Monocytes % 9.8 Eosinophils % 1.1 Basophils % 0.3 Sodium 134 L Potassium 4.5 Chloride 99 Carbon Dioxide 28 Anion Gap 7 L BUN 13 Creatinine 0.5 L D Creat Clearance w eGFR > 60 Random Glucose 138 H Calcium 9.6 Phosphorus 4.2 D Magnesium 1.9 Total Bilirubin 0.5 D AST 54 H D ALT 117 H D Alkaline Phosphatase 214 H Total Protein 6.1 L Albumin 3.2 L M.pneumoniae IgG Titer 2646 H M.pneumoniae IgM Titer <770 Microbiology 03/22/16 16:20 Blood - Peripheral Venous Blood Culture - Final NO GROWTH AFTER 5 DAYS INCUBATION 03/22/16 16:30 Blood - Peripheral Venous Blood Culture - Final NO GROWTH AFTER 5 DAYS INCUBATION 03/22/16 16:20 Urine - Urine Clean Catch Urine Culture - Final NO GROWTH OBTAINED 03/22/16 16:20 Urine For Antigen Detection Legionella Antigen - Final, negative 03/22/16 16:20 Urine For Antigen Detection Streptococcus pneumoniae Antigen (M - Final, negative 03/22/16 16:05 Nasopharyngeal Swab Influenza Types A,B Antigen (MICHAEL) - Final , negative IMAGING chest xray (03/22), small billateral pleural effusions ct of chest, billateral pleural effusions r>L, borderline cardiomegaly, bilateral pulmonary nodules, ? malignancy--> repeat ct scan in 4-6 weeks echo, LV WNL, mild mr, tr, as, small pericardial effusion, pleural effusion CT of head: negative for acute pathology. HOSPITAL COURSE: patient was admitted to the hospital for bilateral pneumonia and allergic reaction to keflex. Upon arrival to the emergency department she was noted to have facial swelling after taking keflex for parotitis. patient was placed on solumedrol which was transitioned to prednisone. chest xray revealed bilateral pleural effusions to bases. patient was immediately placed on iv levaquin which was continued throughout hospitalization. RSV, legionalla and strep pneumonaie cultures resulted as negative. patient was treated with combivent nebulizers and placed on symbicort. pulmonary Dr Eastman was consulted. she was noted to have lleukocytosis WBC 16.1, likely secondary to prednisone and allergic reaction,. she devoloped eosinophilia. patient's eosinophils are WNL. ID, Dr Nevarez was consulted and followed. Transaminitis, was noted LFT's trending downward, likely secondary to infection , zetia and fenobriate. patient has a past medical history of hyperlipidemia. however fenobriate and zetia was held due to transanimitis. bnp negative. since cardiomegly was noted on ct scan, patient's echo resulted as LV WNL. patient does have pmh of thoracic disc bulges as per patient. patient takes ultram at home which was prescribed throughout hospitalization. patient reports headaches which were new onset. ct scan of her head resulted as negative for acute pathology. she was treated with Fioricet with resolution of headaches. Date of Admission:03/22/16 Date of Discharge: 03/29/16 Minutes to complete discharge: 45 Discharge Summary Reason For Visit: REVISIT FOR PNEUMONIA Current Active Problems Dehydration (Acute) Eosinophilia (Acute) Pneumonia (Acute) Pulmonary nodules/lesions, multiple (Acute) Condition: Improved - Instructions Diet, Activity, Other Instructions: continue Symbicort daily, use the albuterol inhaler as needed for shortness of breath Continue prednisone as prescribed Continue taking Levaquin, please take Levaquin with food fioricet as needed for headaches Please alternate between Tylenol and naproxen for pain please follow-up with the account processor within 6-[address] scan Return to the emergency department immediately with ANY new, persistent or worsening symptoms. You MUST call and follow up with your doctor tomorrow. Please make sure your doctor reviews the results of your hospital stay. Referrals: Elier Nevarez MD [Staff Physician] - Anam Eastman MD [Staff Physician] - (please follow up with the account processor within 4 to 6 weeks. ) Disposition: HOME - Home Medications Comprehensive Discharge Medication List: Ambulatory Orders Epinephrine (Epi-Pen 0.3MG) [Epipen 0.3MG -] 0.3 mg IM ASDIR PRN #2 pens RX: Acyclovir [Zovirax -] 400 mg PO DAILY 03/19/16 RX: Ezetimibe [Zetia] 10 mg PO DAILY 03/19/16 RX: Fenofibrate 40 mg PO DAILY 03/19/16 Albuterol Sulfate Inhaler - [Ventolin Hfa Inhaler -] 1 - 2 inh PO QID PRN Doxycycline Hyclate [Vibramycin] 100 mg PO BID 03/22/16 This patient is new to me today: No Emergency Visit: Yes ED Registration Date: 03/22/16 Care time: The patient presented to the Emergency Department on the above date and was hospitalized for further evaluation of their emergent condition. Critical Care patient: No - Discharge Referral Referred to [facility] Med P.C.: No
[2016-03-29] MEDS ORDERED: predniSONE 20 MG TABLET (UD) PO SCH (10:00)
--- NOTE | 2016-03-29 10:23 | PN ---
Progress Note, Physician History of Present Illness: pulmonary alert,nad,-sob,-cp,-cough - Current Medication List Current Medications: Active Medications Acyclovir (Zovirax -) 400 mg PO DAILY [facility] Last Admin: 03/28/16 09:41 Dose: 400 mg Albuterol/Ipratropium (Duoneb -) 1 amp NEB Q6H PRN PRN Reason: COUGH Last Admin: 03/26/16 05:30 Dose: 1 amp Budesonide/Formoterol Fumarate (Symbicort 80/4.5mcg -) 2 puff IH BID [facility] Last Admin: 03/28/16 21:39 Dose: 2 puff Diphenhydramine HCl (Benadryl -) 25 mg PO HS PRN PRN Reason: INSOMNIA Last Admin: 03/25/16 23:45 Dose: 25 mg Ezetimibe (Zetia -) 10 mg PO DAILY [facility] Last Admin: 03/27/16 10:21 Dose: 10 mg Fenofibric Acid (Trilipix -) 45 mg PO DAILY [facility] Last Admin: 03/27/16 10:21 Dose: 45 mg Fluticasone Propionate (Flonase -) 1 spray NS BID [facility] Last Admin: 03/28/16 21:39 Dose: 1 spray Guaifenesin (Robitussin -) 10 ml PO Q4H PRN PRN Reason: COUGH Last Admin: 03/26/16 10:01 Dose: 10 ml Levofloxacin (Levaquin 750 Mg Premixed Ivpb -) 150 mls @ 100 mls/hr IVPB DAILY [facility] Last Admin: 03/28/16 09:42 Dose: 100 mls/hr Ibuprofen (Motrin -) 400 mg PO Q6H PRN PRN Reason: PAIN Last Admin: 03/28/16 23:41 Dose: 400 mg Magnesium Oxide (Mag-Ox -) 400 mg PO BID [facility] Last Admin: 03/28/16 21:39 Dose: 400 mg Ondansetron HCl (Zofran Injection) 4 mg IVPB Q6H PRN PRN Reason: NAUSEA Last Admin: 03/26/16 23:45 Dose: 4 mg Prednisone (Deltasone -) 40 mg PO DAILY [facility] Ranitidine HCl (Zantac -) 150 mg PO DAILY [facility] Last Admin: 03/28/16 09:41 Dose: 150 mg Tramadol HCl (Ultram -) 50 mg PO Q6H PRN PRN Reason: PAIN Last Admin: 03/29/16 02:00 Dose: 50 mg Zolpidem Tartrate (Ambien -) 5 mg PO HS PRN PRN Reason: INSOMNIA Last Admin: 03/28/16 00:40 Dose: 5 mg - Objective Vital Signs: Vital Signs Temperature 98.4 F 03/29/16 05:57 Pulse Rate 64 03/29/16 05:57 Respiratory Rate 18 03/29/16 05:57 Blood Pressure 146/64 03/29/16 05:57 O2 Sat by Pulse Oximetry (%) 95 03/29/16 07:58 Constitutional: Yes: Well Nourished, Calm Eyes: Yes: WNL HENT: Yes: WNL Neck: Yes: WNL Cardiovascular: Yes: Regular Rate and Rhythm, S1, S2 Respiratory: Yes: CTA Bilaterally Gastrointestinal: Yes: WNL Extremities: Yes: WNL Edema: No Labs: CBC, BMP 03/28/16 08:30 03/28/16 08:30 Problem List - Problems (1) Pneumonia Code(s): J18.9 - PNEUMONIA, UNSPECIFIED ORGANISM Qualifiers: Pneumonia type: due to unspecified organism Laterality: unspecified laterality Lung location: unspecified part of lung Qualified Code(s): J18.9 - Pneumonia, unspecified organism (2) Allergic reaction Code(s): T78.40XA - ALLERGY, UNSPECIFIED, INITIAL ENCOUNTER Qualifiers: Encounter type: initial encounter Qualified Code(s): T78.40XA - Allergy , unspecified, initial encounter (3) Parotitis Code(s): K11.20 - SIALOADENITIS, UNSPECIFIED (4) Eosinophilia Code(s): D72.1 - EOSINOPHILIA (5) Pulmonary nodules/lesions, multiple Code(s): R91.8 - OTHER NONSPECIFIC ABNORMAL FINDING OF LUNG FIELD Assessment/Plan IMP BILATERAL PULMONARY NODULES LIKELY INFLAMMATORY ,?INFECTIOUS,?MALIGNANT ACUTE ASTHMATIC BRONCHITIS EOSINOPHILIA IMPROVED S/P ALLERGIC RX PERICARDIAL EFFUSION BILATERAL PLEURAL EFFUSION LIKELY REACTIVE ELEVATED LFTS PLAN PREDNISONE 40mg with taper INHALED BRONCHODILATORS MONITOR LFTS F/U CHEST CT 4-6WKS OUTPATIENT DR OLIVER Problem List - Problems (1) Pneumonia Code(s): J18.9 - PNEUMONIA, UNSPECIFIED ORGANISM Qualifiers: Pneumonia type: due to unspecified organism Laterality: unspecified laterality Lung location: unspecified part of lung Qualified Code(s): J18.9 - Pneumonia, unspecified organism (2) Allergic reaction Code(s): T78.40XA - ALLERGY, UNSPECIFIED, INITIAL ENCOUNTER Qualifiers: Encounter type: initial encounter Qualified Code(s): T78.40XA - Allergy , unspecified, initial encounter (3) Parotitis Code(s): K11.20 - SIALOADENITIS, UNSPECIFIED (4) Eosinophilia Code(s): D72.1 - EOSINOPHILIA (5) Pulmonary nodules/lesions, multiple Code(s): R91.8 - OTHER NONSPECIFIC ABNORMAL FINDING OF LUNG FIELD
[2016-03-29] MEDS: FLUTICASONE PROP 0.05% 16 GM NASAL SPRAY NS SCH (10:30)
[2016-03-29] MEDS: LEVOFLOXACIN 750 MG IVPB 150 ML IVPB SCH (10:30)
[2016-03-29] MEDS: MAGNESIUM OXIDE 400 MG TABLET (FP) PO SCH (10:30)
[2016-03-29] MEDS: BUDESONIDE/FORMETEROL FUMARATE 80/4.5 mcg INHALER IH SCH (10:30)
[2016-03-29] MEDS: ACYCLOVIR 400 MG TABLET PO SCH (10:31)
[2016-03-29] MEDS: FENOFIBRIC ACID 45 MG CAP PO SCH (10:31)
[2016-03-29] MEDS: EZETIMIBE 10 MG TABLET (FP) PO SCH (10:31)
[2016-03-29] MEDS: ONDANSETRON 4 MG/2 ML VIAL IVPB PRN (10:31)
[2016-03-29] MEDS: RANITIDINE HCL 150 MG TABLET (FP) PO SCH (10:31)
[2016-03-29] MEDS: IBUPROFEN 400 MG TABLET (FP) PO PRN (11:00)
== END 2016-03-29 12:32 | disposition home or self-care (01) | DRG 194 ==
LOC: FER 15:07 → FM/S 18:40
PROVIDERS: ADMIT Internal Medicine; ATTEND Nurse Practitioner Family
DX: J18.9 Pneumonia, unspecified organism (principal); E87.1 Hypo-osmolality and hyponatremia; B02.30 Zoster ocular disease, unspecified; J90 Pleural effusion, not elsewhere classified; J45.902 Unspecified asthma with status asthmaticus; I31.3 Pericardial effusion (noninflammatory); K11.20 Sialoadenitis, unspecified; E78.5 Hyperlipidemia, unspecified; G43.809 Other migraine, not intractable, without status migrainosus; D72.1 Eosinophilia; R74.0 Nonspecific elevation of levels of transaminase and lactic acid dehydrogenase [LDH]; R91.8 Other nonspecific abnormal finding of lung field; L29.8 Other pruritus; T36.1X5A Adverse effect of cephalosporins and other beta-lactam antibiotics, initial encounter; J06.9 Acute upper respiratory infection, unspecified
CPT/HCPCS: 36415; 70450-TC; 71020-TC; 71250-TC; 80048; 80053; 80076; 81003; 82436; 83735; 83880; 83935; 84100; 84133; 84300; 85025; 85651; 86140; 86308; 86664; 86665; 86735; 86738; 87040; 87086; 87420; 87804; 87899; 93005; 93306-TC; 94010; 94150; 94640; 99282-25; 99283-25; J1644